=== PATIENT | male | born 1940 | race Caucasian/White ===

== ENCOUNTER 2016-06-22 10:42 | Inpatient (IN) | payer MEDICARE, OTHER ==
[~2016-06-22] VITALS: Ht 177.8 cm; Wt 90.9 kg
[2016-06-22 11:25] LABS: BASOPHILS 0.7 % (0.0-2.0); EOSINOPHILS 1.4 % (0-7); HEMATOCRIT 43.4 % (42.0-54.0); HEMOGLOBIN 13.6 g/dL (13.5-17.5); IMMATURE GRANULOCYTES 0.2 % (0-5); LYMPHOCYTES 10.5 % (15-50); MCH 30.6 pg (26.0-34.0); MCHC 31.3 g/dL (31.0-37.0); MCV 97.7 fL (80.0-100.0); MEAN PLATELET VOLUME 11.6 fL (7.4-10.4); MONOCYTES 13.8 % (2-11); NEUTROPHILS 73.4 % (40-80); PLATELET COUNT 134 10x3/uL (130-400); RBC 4.44 10x6/uL (4.20-6.10); RDW 13.3 % (11.5-14.5); WBC 5.6 10x3/uL (4.8-10.8)
[2016-06-22 11:49] LABS: ALBUMIN 3.4 g/dL (3.4-5.0); ANION GAP 13.6 mmol/L (8-16); BILIRUBIN - TOTAL 0.38 mg/dL (0.2-1.3); C-REACTIVE PROTEIN 9.8 mg/dL (0.0-0.9); CALCIUM 9.4 mg/dL (8.5-10.1); CARBON DIOXIDE 30.4 mmol/L (21.0-32.0); CREATININE - SERUM 1.8 mg/dL (0.6-1.3); PROTEIN - SERUM 7.5 g/dL (6.4-8.2)
[2016-06-22 12:25] VITALS: BP 137/66
[2016-06-22] MEDS ORDERED: NORVASC10 MG PO (14:31)
[2016-06-22] MEDS ORDERED: PROSCAR5 MG PO (14:32)
[2016-06-22] MEDS ORDERED: FLOMAX0.4 MG PO (14:32)
[2016-06-22] MEDS ORDERED: BUPROPION HCL150 M1 PO (14:33)
[2016-06-22] MEDS ORDERED: DEPAKOTE ER500 MG PO (14:33)
[2016-06-22] MEDS ORDERED: CRESTOR20 MG PO (14:34)
[2016-06-22] MEDS ORDERED: NAMENDA XR28 MG PO (14:34)
[2016-06-22] MEDS ORDERED: TOPROL XL25 MG PO (14:34)
[2016-06-22] MEDS ORDERED: HYDROCODONE-APA1 TAB PO (14:35)
[2016-06-22 14:42] VITALS: BP 137/66; Ht 177.8 cm; Wt 90.9 kg
[2016-06-22 15:09] VITALS: BP 149/83
[2016-06-22 21:00] VITALS: BP 155/74
[2016-06-23 01:30] VITALS: BP 173/79
[2016-06-23 05:00] VITALS: BP 147/68
[2016-06-23 05:47] LABS: BASOPHILS 0.2 % (0.0-2.0); EOSINOPHILS 2.4 % (0-7); HEMATOCRIT 37.9 % (42.0-54.0); IMMATURE GRANULOCYTES 0.2 % (0-5); LYMPHOCYTES 13.7 % (15-50); MCH 30.6 pg (26.0-34.0); MCHC 31.7 g/dL (31.0-37.0); MCV 96.7 fL (80.0-100.0); MEAN PLATELET VOLUME 11.8 fL (7.4-10.4); NEUTROPHILS 72.5 % (40-80); PLATELET COUNT 118 10x3/uL (130-400); RBC 3.92 10x6/uL (4.20-6.10); RDW 13.3 % (11.5-14.5)
[2016-06-23 06:36] LABS: ALBUMIN 2.6 g/dL (3.4-5.0); ANION GAP 11.4 mmol/L (8-16); BILIRUBIN - TOTAL 0.3 mg/dL (0.2-1.3); CALCIUM 8.3 mg/dL (8.5-10.1); CREATININE - SERUM 1.5 mg/dL (0.6-1.3); POTASSIUM - SERUM 3.4 mmol/L (3.5-5.1); PROTEIN - SERUM 6.1 g/dL (6.4-8.2)
[2016-06-23 07:57] VITALS: BP 141/78
[2016-06-23 10:56] LABS: APPEARANCE CLEAR (CLEAR); COLOR YELLOW (YELLOW); GLUCOSE NEGATIVE (NEGATIVE); NITRITE NEGATIVE (NEGATIVE); PROTEIN NEGATIVE (NEGATIVE)
[2016-06-23 10:57] LABS: BACTERIA FEW /hpf (NONE SEEN); BILIRUBIN NEGATIVE (NEGATIVE); EPITHELIAL CELLS 0-5 /hpf (0-5); KETONE MODERATE mg/dL (NEGATIVE); LEUKOCYTE ESTERASE TRACE (NEGATIVE); MUCUS <1+ /lpf (NONE SEEN); RED CELLS - URINE OCC /hpf (0-5); WHITE CELLS - URINE 0-5 /hpf (0-5)
[2016-06-23 12:35] VITALS: BP 144/78
[2016-06-23 15:31] VITALS: BP 145/75
[2016-06-23 21:25] VITALS: BP 136/67
[2016-06-24 01:14] VITALS: BP 149/69
[2016-06-24 04:59] LABS: BASOPHILS 0.5 % (0.0-2.0); EOSINOPHILS 1.4 % (0-7); HEMATOCRIT 38.1 % (42.0-54.0); HEMOGLOBIN 12.1 g/dL (13.5-17.5); IMMATURE GRANULOCYTES 0.2 % (0-5); LYMPHOCYTES 14.5 % (15-50); MCH 30.7 pg (26.0-34.0); MCHC 31.8 g/dL (31.0-37.0); MCV 96.7 fL (80.0-100.0); MEAN PLATELET VOLUME 11.3 fL (7.4-10.4); MONOCYTES 13.3 % (2-11); NEUTROPHILS 70.1 % (40-80); PLATELET COUNT 118 10x3/uL (130-400); RBC 3.94 10x6/uL (4.20-6.10); RDW 13.2 % (11.5-14.5); WBC 4.2 10x3/uL (4.8-10.8)
[2016-06-24 05:15] LABS: ALBUMIN 2.6 g/dL (3.4-5.0); ANION GAP 10.9 mmol/L (8-16); BILIRUBIN - TOTAL 0.3 mg/dL (0.2-1.3); CALCIUM 8.5 mg/dL (8.5-10.1); CARBON DIOXIDE 29.3 mmol/L (21.0-32.0); CREATININE - SERUM 1.6 mg/dL (0.6-1.3); POTASSIUM - SERUM 3.2 mmol/L (3.5-5.1); PROTEIN - SERUM 6.1 g/dL (6.4-8.2)
[2016-06-24 06:50] VITALS: BP 132/68
[2016-06-24 08:20] VITALS: BP 155/77
[2016-06-24 12:19] VITALS: BP 134/64
[2016-06-24 16:55] VITALS: BP 124/66
[2016-06-24 21:03] VITALS: BP 136/68
[2016-06-25 00:59] VITALS: BP 145/69
[2016-06-25 04:00] VITALS: BP 133/75
[2016-06-25 06:11] LABS: BASOPHILS 0.2 % (0.0-2.0); EOSINOPHILS 3.3 % (0-7); HEMATOCRIT 37.9 % (42.0-54.0); HEMOGLOBIN 11.8 g/dL (13.5-17.5); IMMATURE GRANULOCYTES 0.9 % (0-5); LYMPHOCYTES 14.1 % (15-50); MCH 30.3 pg (26.0-34.0); MCHC 31.1 g/dL (31.0-37.0); MCV 97.4 fL (80.0-100.0); MEAN PLATELET VOLUME 11.7 fL (7.4-10.4); MONOCYTES 10.7 % (2-11); NEUTROPHILS 70.8 % (40-80); PLATELET COUNT 115 10x3/uL (130-400); RBC 3.89 10x6/uL (4.20-6.10); RDW 13.4 % (11.5-14.5); WBC 4.5 10x3/uL (4.8-10.8)
[2016-06-25 06:40] LABS: ALBUMIN 2.5 g/dL (3.4-5.0); ANION GAP 11.8 mmol/L (8-16); BILIRUBIN - TOTAL 0.3 mg/dL (0.2-1.3); CALCIUM 8.5 mg/dL (8.5-10.1); CARBON DIOXIDE 27.7 mmol/L (21.0-32.0); CREATININE - SERUM 1.5 mg/dL (0.6-1.3); POTASSIUM - SERUM 3.5 mmol/L (3.5-5.1); PROTEIN - SERUM 6.1 g/dL (6.4-8.2)
[2016-06-25 07:59] VITALS: BP 153/71
[2016-06-25] MEDS ORDERED: IPRAT-ALBUT 0.5-3 ML UPD (11:30)
[2016-06-25 12:08] VITALS: BP 160/71
--- NOTE | 2016-07-28 09:33 | HP ---
PATIENT: ERIKA MEJIA MEDICAL RECORD: [id number] ACCOUNT: [id number] LOCATION:D.MS [id number] : 41 ADMISSION DATE: 06/22/16 HISTORY AND PHYSICAL EXAMINATION CHIEF COMPLAINT: Falls. HISTORY OF PRESENT ILLNESS: A 76-year-old white male patient of mine who lives at [facility] with his presents after falling last night. The patient reports he was trying to go to the bathroom, fell in the bathroom, hit his head and hit his back. He has excoriations and swelling around the top right side of his face, large bruising and hematoma to the right flank area. The patient reports that he has been dizzy lately and he does have some mild dementia and a history of chronic back pain, on narcotics. REVIEW OF SYSTEMS: CONSTITUTIONAL: Positive for fatigue, no fever or chills. CARDIOVASCULAR: No chest pain. RESPIRATORY: No cough or wheeze. GASTROINTESTINAL: No nausea, vomiting, abdominal pain. GENITOURINARY: No dysuria. MUSCULOSKELETAL: Positive for chronic back pain. SKIN: Positive for excoriation to face. NEUROLOGIC: See HPI. PAST MEDICAL HISTORY: 1. Congestive heart failure. 2. Hyperlipidemia. 3. Hypertension. 4. History of pneumonia. 5. History of kidney stones. 6. Osteoarthritis. 7. Mild dementia. 8. History of stroke. 9. Chronic kidney disease. 10. Benign prostatic hypertrophy. 11. Depression. PAST SURGICAL HISTORY: Vasectomy, CABG and back surgery times 2. FAMILY HISTORY: Father with coronary artery disease. SOCIAL HISTORY: The patient is with 2 children. 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 Nonsmoker, nondrinker. ALLERGIES: No known drug allergies. MEDICATIONS: [place] 10/325 one b.i.d. to t.i.d. p.r.n., Namenda XR 28 mg 1 a day, Crestor 20 mg at night, vitamin D3 of 1000 units 2 tabs daily, Toprol-XL 25 mg a day, Depakote 500 mg 2 tabs at night, Wellbutrin SR 150 mg b.i.d., amlodipine 5 mg b.i.d., Flomax 0.4 mg daily, MiraLax as needed, finasteride 5 mg daily, aspirin 325 mg a day. PHYSICAL EXAMINATION: VITAL SIGNS: Temperature 98.4, blood pressure 118/76, pulse 99, respirations HISTORY AND PHYSICAL [id number] ERIKA MEJIA 18, O2 sat 96% on room air. GENERAL: The patient in no acute distress. HEENT: Swollen right lower eyelid. RESPIRATORY: Lungs are clear to auscultation bilaterally. CARDIOVASCULAR: Regular rate and rhythm, 1+ pedal edema. GASTROINTESTINAL: Soft, nontender to palpation. Bowel sounds positive. MUSCULOSKELETAL: Shuffling gait, tender to palpation around the right flank area. SKIN: Abrasions at the right side of face and bruising/hematoma in the right flank. NEUROLOGIC: Awake, alert, oriented to person and place only. ASSESSMENT: 1. Fall. 2. Dizziness. 3. Closed head injury. 4. Flank pain. 5. Hypertension. 6. Opioid dependence. 7. Chronic kidney disease stage III. 8. Visual hallucinations. 9. Brief confusion. PLAN: We will admit the patient to the hospital. CT head, CT abdomen and pelvis with contrast to rule out kidney injury or other internal organ damage due to falls and dizziness. The patient likely would benefit from inpatient rehabilitation. Also due to recent hallucinations, possible cam-psych admit. Other orders as written on chart. TRANSINT:[id number] Voice Confirmation ID: [id number] DOCUMENT ID: [id number] IVANNA LOPEZ MD at 0933 CC: [id number] DICTATION DATE: 06/22/16 140 AIRLINE ATTENDANT: 06/22/16 1601 DIS IN 06/25/16 [facility] [address] [place] [address]
--- NOTE | 2016-09-01 15:50 | DS ---
PATIENT:ERIKA MEJIA :42 MEDICAL RECORD: [id number] DISCHARGE SUMMARY ADMISSION DATE: 06/22/16 DISCHARGE DATE: 06/25/16 DATE OF ADMISSION: 06/22/2016 DATE OF DISCHARGE: 06/25/2016 ADMITTING DIAGNOSES: 1. Fall. 2. Dizziness. 3. Closed head injury. 4. Flank pain. 5. Hypertension. 6. Opioid dependence. 7. Chronic kidney disease, stage III. 8. Visual hallucinations. 9. Brief confusion. HOSPITAL COURSE: This is a 76-year-old white male patient of Dr. Medrano, admitted with diagnoses as outlined above. Details are well-outlined in the history of the present illness, H&P. All events, lab procedures, diagnostic testing are well documented in the records. The patient was admitted and workup included CT head, CT abdomen and pelvis to rule out any kidney injury or other internal organ damage due to falls and dizziness. Chest x-ray showed minimal interstitial disease presents with extensive postoperative changes. Cervical spine CT, no acute osseous abnormality present in the cervical spine. There were extensive degenerative changes present throughout the cervical spine contributing to multilevel spinal canal stenosis and neural foraminal narrowing, osteoporosis, atherosclerosis in the carotid bulbs bilaterally. CT of the abdomen and pelvis showing no evidence of acute traumatic injury in the abdomen or pelvis. There was noted to be extensive surgical intervention in the visualized thoracic spine and in the upper lumbar spine. No acute osseous abnormality. It also showed punctate nonobstructive calculus in the superior pole of the left kidney, cholelithiasis, mild fecal impaction. CT of the head, no acute intracranial abnormality. It did show bifrontal encephalomalacia, most likely due to previous trauma or infarctions and mild diffuse sinusitis. Finger x-ray acute nondisplaced fracture involving the base of the proximal phalanx of the right fifth finger. Please refer to report. X-ray of the knee, no acute osseous abnormality in the right knee. There was some mild osteoarthritic narrowing of the patellofemoral joint. CONSULTANTS: Dr. Rocha with ortho, his recommendations were followed. No intervention was required for the asymptomatic right fifth metacarpal fracture. Overall, the patient improved. On 06/25/2016, he was breathing okay [facility] HE was afebrile, pulse 96, respirations 18, blood pressure 153/71 and O2 sat 95% on room air. DISCHARGE SUMMARY REPORT [id number] ERIKA MEJIA LABORATORY DATA: Sodium 147, potassium 3.5, chloride 111, CO2 of 27.7, BUN 21, serum creatinine 1.5, and glucose 91. White count 4.5, hemoglobin 11.8, and platelets were 115. T-bili 0.3, AST 15, ALT 14, alkaline phosphatase 80, albumin 2.5, and total protein 6.1. Blood culture no growth to date. He was dismissed to rehab. Instructions were given to encourage p.o. fluid intake there. Dr. Park will follow him there. Greater than 30 minutes was spent on this discharge. DISCHARGE DIAGNOSES: 1. Hallucinations. 2. Acute delirium. 3. Frequent fall. 4. Acute kidney injury. 5. Closed head injury with concussion. 6. Hypernatremia. 7. Finger fracture, right. 8. Congestive heart failure. 9. Hyperlipidemia. 10. Essential hypertension. 11. Osteoarthritis. 12. Depression. 13. Tachycardia. 14. Chronic kidney disease, stage III. TRANSINT:[id number] Voice Confirmation ID: [id number] DOCUMENT ID: [id number] Dictated By: VALENTIN MARSHALL RN I have interviewed/examined the above patient and agree with these documented findings. RADHA ARREOLA DO at 1012 at 1550 CC: [id number] DICTATION DATE: 08/31/16 1630 RIBBON HANKING MACHINE OPERATOR: 09/01/16 1137 DIS IN 06/25/16 [id number] [place] [address]
== END 2016-06-25 14:20 | DRG 89 ==
LOC: D.MS 10:42
PROVIDERS: Family Medicine; ADMIT Family Medicine
DX: S06.0X9A Concussion with loss of consciousness of unspecified duration, initial encounter (principal); S36.32XA Contusion of stomach, initial encounter; N17.9 Acute kidney failure, unspecified; E87.0 Hyperosmolality and hypernatremia; I13.0 Hypertensive heart and chronic kidney disease with heart failure and stage 1 through stage 4 chronic kidney disease, or unspecified chronic kidney disease; F05 Delirium due to known physiological condition; S62.606A Fracture of unspecified phalanx of right little finger, initial encounter for closed fracture; W18.30XA Fall on same level, unspecified, initial encounter; Y92.002 Bathroom of unspecified non-institutional (private) residence as the place of occurrence of the external cause; S00.81XA Abrasion of other part of head, initial encounter; M19.90 Unspecified osteoarthritis, unspecified site; F32.9 Major depressive disorder, single episode, unspecified; F03.90 Unspecified dementia, unspecified severity, without behavioral disturbance, psychotic disturbance, mood disturbance, and anxiety; M54.9 Dorsalgia, unspecified; R41.0 Disorientation, unspecified; G89.29 Other chronic pain; E78.5 Hyperlipidemia, unspecified; N18.3 Chronic kidney disease, stage 3 (moderate); I50.9 Heart failure, unspecified; N40.0 Benign prostatic hyperplasia without lower urinary tract symptoms; I25.10 Atherosclerotic heart disease of native coronary artery without angina pectoris; Z91.81 History of falling

== ENCOUNTER → 2016-08-19 12:00 | Outpatient (CLI) | payer MEDICARE, OTHER ==
[2016-06-22 14:42] VITALS: BMI 28.7
[~2016-08-19 12:00] MED LIST: BUPROPION HCL150 M1 PO; CRESTOR20 MG PO; DEPAKOTE ER500 MG PO; FLOMAX0.4 MG PO; HYDROCODONE-APA1 TAB PO; IPRAT-ALBUT 0.5-3 ML UPD; NAMENDA XR28 MG PO; NORVASC10 MG PO; PROSCAR5 MG PO; TOPROL XL25 MG PO
== END | disposition home or self-care (01) ==
LOC: D.RAD 12:00
DX: R13.13 Dysphagia, pharyngeal phase (principal)

== ENCOUNTER → 2016-09-14 09:51 | Outpatient (CLI) | payer MEDICARE, OTHER ==
[2016-06-22 14:42] VITALS: BMI 28.7
[2016-09-14 10:45] LABS: CHOL - HDL RATIO 2.6 ratio (2.3-4.9); LDL-HDL RATIO 1.4 ratio (1.5-3.5)
== END | disposition home or self-care (01) ==
LOC: D.LABREF 09:51
PROVIDERS: Family Medicine
DX: I25.10 Atherosclerotic heart disease of native coronary artery without angina pectoris (principal)

== ENCOUNTER → 2016-12-14 12:46 | Outpatient (CLI) | payer MEDICARE, OTHER ==
[2016-06-22 14:42] VITALS: BMI 28.7
[2016-12-14 14:55] LABS: ANION GAP 12.9 mmol/L (8-16); CARBON DIOXIDE 28.1 mmol/L (21.0-32.0); CREATININE - SERUM 1.4 mg/dL (0.6-1.3)
== END | disposition home or self-care (01) ==
LOC: D.LABREF 12:46
PROVIDERS: Family Medicine
DX: I50.9 Heart failure, unspecified (principal); I10 Essential (primary) hypertension; N40.0 Benign prostatic hyperplasia without lower urinary tract symptoms

== ENCOUNTER 2017-04-29 11:40 | Emergency (ER) | payer MEDICARE, OTHER ==
[2016-06-22 14:42] VITALS: BMI 28.7
== END 2017-04-29 16:55 | disposition home or self-care (01) ==
LOC: D.ER 11:40
DX: S39.012A Strain of muscle, fascia and tendon of lower back, initial encounter (principal); W19.XXXA Unspecified fall, initial encounter; Y93.89 Activity, other specified; Y92.129 Unspecified place in nursing home as the place of occurrence of the external cause

== ENCOUNTER 2019-10-01 09:02 | Inpatient (IN) | payer MEDICARE, BC ==
[~2019-10-01] VITALS: Ht 177.8 cm; Wt 88.0 kg
[2019-10-01] MEDS ORDERED: GABAPENTIN300 MG PO (09:10)
[2019-10-01] MEDS ORDERED: VOLTAREN100 GM (09:11)
[2019-10-01] MEDS ORDERED: DULCOLAX5 MG PO (09:11)
[2019-10-01] MEDS ORDERED: PROAIR HFA8.5 G1 INH (09:12)
[2019-10-01] MEDS ORDERED: TESSALON PERLE100 MG PO (09:12)
[2019-10-01] MEDS ORDERED: MIRALAX17 GM PO (09:12)
[2019-10-01] MEDS ORDERED: ASPIRIN325 MG PO (09:13)
[2019-10-01] MEDS ORDERED: TRINTELLIX5 MG PO (09:14)
[2019-10-02 14:05] VITALS: Ht 177.8 cm; Wt 88.0 kg
[2019-10-11] MEDS ORDERED: HALDOL5 MG/ML IM (11:42)
[2019-10-11] MEDS ORDERED: TOPROL XL50 MG PO (11:42)
[2019-10-11 12:00] VITALS: BP 144/77
== END 2019-10-11 15:30 | disposition short-term general hospital (02) | DRG 871 ==
LOC: D.ER 09:02 → D.MS 12:20
PROVIDERS: ADMIT Emergency Medicine; ATTEND Emergency Medicine
DX: A41.9 Sepsis, unspecified organism (principal); G93.41 Metabolic encephalopathy; I21.4 Non-ST elevation (NSTEMI) myocardial infarction; N39.0 Urinary tract infection, site not specified; I13.0 Hypertensive heart and chronic kidney disease with heart failure and stage 1 through stage 4 chronic kidney disease, or unspecified chronic kidney disease; I50.9 Heart failure, unspecified; N18.3 Chronic kidney disease, stage 3 (moderate); E78.5 Hyperlipidemia, unspecified; E87.6 Hypokalemia; F32.9 Major depressive disorder, single episode, unspecified; I25.10 Atherosclerotic heart disease of native coronary artery without angina pectoris; N40.0 Benign prostatic hyperplasia without lower urinary tract symptoms; F01.50 Vascular dementia, unspecified severity, without behavioral disturbance, psychotic disturbance, mood disturbance, and anxiety; G93.89 Other specified disorders of brain

== ENCOUNTER 2019-10-11 14:28 | Inpatient (IN) | payer MEDICARE, BC ==
[~2019-10-11] VITALS: Ht 177.8 cm; Wt 82.1 kg
[~2019-10-11 14:28] MED LIST changes: +ASPIRIN325 MG PO; +DULCOLAX5 MG PO; +GABAPENTIN300 MG PO; +HALDOL5 MG/ML IM; +MIRALAX17 GM PO; +PROAIR HFA8.5 G1 INH; +TESSALON PERLE100 MG PO; +TOPROL XL50 MG PO; +TRINTELLIX5 MG PO; +VOLTAREN100 GM
[2019-10-11 16:04] VITALS: BP 140/80; BMI 25.3
--- NOTE | 2019-10-11 17:04 | NUR ---
The patient is admitted from Med Surg. He is brought by two staff in a bed, staff transferred the patient from the bed to the [facility] to weigh him on the scale. He is calm and did not show any aggression. He has bruises to his right wrist area. He has scars from bypass surgery in early 1999'. Scar from a back surgery years ago. He has his own teeth. His left side of his face looks like it is lower than the right, but he denies a stroke ever. Spoke to the patient's "Zeinab" and she says he has never had a stroke, but at one time had a small TIA. She also states the patient is a full code. He has his own teeth and he is not wearing glasses or a hearing aid. He answers most questions at this time appropriately. Will monitor his mood and behaviors.
--- NOTE | 2019-10-11 18:31 | NUR ---
The patient has a bandage to his left arm d/t skin tears.
[2019-10-11 18:50] LABS: CHOL - HDL RATIO 2.8 ratio (2.3-4.9); LDL-HDL RATIO 1.3 ratio (1.5-3.5); THYROID STIMULATING HORMONE 1.68 uIU/mL (0.36-3.74)
[2019-10-11 20:10] VITALS: BP 135/75
--- NOTE | 2019-10-11 23:09 | NUR ---
B.) PT IS ALERT AND ORIENTED TO SELF. HE IS RECEIVED IN THE DAYROOM IN A WHEELCHAIR. HE IS SELF ISOLATING AND WITHDRAWN. HE DEMANDS TO HAVE A BLANKET OVER HIS FACE. I.) REDIRECT OFTEN. R.) EASY TO REDIRECT. P.) WILL CONTINUE TO MONITOR.
--- NOTE | 2019-10-12 06:16 | NUR ---
DRESSING CHANGE APPLIED TO SKIN TEARS ON LEFT ARM. NON ADHERENT DRESSING APPLIED AND KURLEX WRAPPED. FREE FROM S&S OF INFECTION.
--- NOTE | 2019-10-12 11:03 | NUR ---
The patient awakened and he didn't want to get up this am. He fought with the staff a little this am, but once he was up he did not fight anymore. He is watchful. He didn't drink any fluids or eat breakfast. His called to check on him. He did sleep well last night. He is very confused and has poor insight into his situation. Provide prescribed meds. redirect as needed to appropriate behavior. The patient is in a w/c and he needs assistance with two staff. He is incont. of bowel and bladder. Continue POC.
[2019-10-12 11:35] VITALS: BP 195/85
[2019-10-12 14:59] LABS: BASOPHILS 0.5 % (0-2); EOSINOPHILS 0.2 % (0-7); HEMATOCRIT 43.7 % (42.0-54.0); HEMOGLOBIN 14.3 g/dL (13.5-17.5); IMMATURE GRANULOCYTES 0.2 % (0-5); LYMPHOCYTES 7.4 % (15-50); MCHC 32.7 g/dL (31.0-37.0); MCV 91.6 fL (80.0-100.0); NEUTROPHILS 79.7 % (40-80); PLATELET COUNT 181 10x3/uL (130-400); RBC 4.77 10x6/uL (4.20-6.10); RDW 14.4 % (11.5-14.5); WBC 8.5 10x3/uL (4.8-10.8)
[2019-10-12 17:29] VITALS: BP 195/85
[2019-10-12 20:21] VITALS: BP 160/84
--- NOTE | 2019-10-12 23:09 | NUR ---
B.) PT IS ALERT AND ORIENTED TO SELF ONLY. HE IS SELF ISOLATING AND WITHDRAWN WITH A FLAT AFFECT. HE HAS A DELAYED REACTION WHEN SPOKEN TO. HE IS AGGRESSIVE WITHOUT PREVOCATION. I.) PROVIDED PM MEDICATIONS PRESCRIBED. REDIRECT OFTEN. R.) PT CHEEKED MEDS AND REFUSED TO TAKE THEM. DIFFICULT TO REDIRECT. P.) WILL CONTINUE TO MONITOR.
--- NOTE | 2019-10-13 07:20 | NUR ---
The patient is awake, he is quiet and watchful. He has poor insight into his situation. He doesn't like to be touched, shift leader he did hit at them, but he has not shown aggression at this time. He answers most questions about himself, but he does not know place or time. Provide prescribed meds. He has not been compliant with meds. He is in a w/c. He needs assist x2 for transfers. Continue POC.
--- NOTE | 2019-10-13 09:39 | NUR ---
The patient refuses his vital signs, refuses his meds, and refuses to eat. The patient's called to check on him. Let her know he is refusing everything today, but will be discussing him in rounds today.
--- NOTE | 2019-10-13 13:04 | PSY ---
PATIENT NAME:ERIKA MEJIA MEDICAL RECORD: [id number] : 42 LOCATION:JESUS [id number] ADMISSION DATE: 10/11/19 ACCOUNT: [id number] PSYCHIATRIC EVALUATION DATE OF EVALUATION: 10/12/19 IDENTIFYING DATA: The patient is 79 years old and he is admitted to the hospital on a voluntary basis. CHIEF COMPLAINT: Confusion and agitation. HISTORY OF PRESENT ILLNESS: The patient presented to the Emergency Room with some confusion and aggressive behavior. The family was concerned that he had a urinary tract infection and that was causing the change. The patient denied usual symptoms associated with a urinary tract infection, but he was subsequently admitted to the medical floor and congestive heart failure and with a urinary tract infection. It was felt that the mental status changes were secondary to the urinary tract infection. Unfortunately, his behaviors did not improve there. He was subsequently transferred to the behavioral unit for ongoing treatment. PAST MEDICAL HISTORY: Significant for hypertension, coronary artery disease, coronary artery bypass grafting, congestive heart failure, urinary tract infection. PAST PSYCHIATRIC HISTORY: None. He is, however, taking an antidepressant and he had recently been on a dose of Namenda. FAMILY HISTORY: Unknown. SOCIAL HISTORY: The patient is and has adult children. He has limited insight about his situation and is not giving me reliable history, but he denies a history of drug or alcohol abuse. MENTAL STATUS EXAMINATION: The patient is awake, alert and oriented to person only. His mood is flat. His affect is constricted. Thought processes are circumstantial. Memory, concentration, and abstraction abilities are severely impaired and he denies that he would seek to harm himself or others as well as active psychotic symptoms. ASSESSMENT: AXIS I: Major neurocognitive disorder of the Alzheimer's type with behavioral disturbances. AXIS II: None. AXIS III: Hypertension, chronic obstructive pulmonary disease, congestive heart failure, urinary tract infection. AXIS IV: Moderate. AXIS V: Global assessment of functioning is 30. PLAN: At this time, the patient will be admitted to the hospital and evaluated from both a medical, psychological, and social standpoint. He will be treated with both mood stabilizing and memory enhancing medications. His long-term prognosis is guarded. TRANSINT:[id number] Voice Confirmation ID: [id number] DOCUMENT ID: [id number] TEO KENDRICK MD at 1304 CC: [id number] DICTATION DATE: 10/12/19 1311 BENZENE OPERATOR: 10/12/19 1353 ADM IN [facility] [address] [id number]
--- NOTE | 2019-10-13 14:52 | PN ---
PATIENT:ERIKA MEJIA MEDICAL RECORD: [id number] LOCATION:JESUS Francisco ADMISSION DATE: 10/11/19 PROGRESS NOTE DATE OF SERVICE: 10/13/2019 SUBJECTIVE: The patient's case was discussed with staff. He has no new complaint. OBJECTIVE: The patient is severely impaired. He is only oriented to person and is very difficult to get to answer questions. He is not eating adequately. He is in fact not eating at all and his oral intake is essentially zero. He is also refusing to take medications. His appearance seems to be one of an end-stage dementia. TRANSINT:[id number] Voice Confirmation ID: [id number] DOCUMENT ID: [id number] TEO KENDRICK MD at 1452 CC: [id number] DICTATION DATE: 10/13/19 1335 PIANO REFINISHER: 10/13/19 1354 ADM IN [facility] [address] [place] [address]
--- NOTE | 2019-10-13 17:30 | NUR ---
Spoke to the patient's spouse and let her know how her did. He slept last night, but still noncompliant with meds and not eating. Noemi from [facility] called and asked the same questions and she said the patient's spouse called and wanted to get a confirmation. Let Noemi the same thing as I explained to the spouse whic is he is sleeping, not eating and not taking his medications. Noemi asked "Will you ever give him a shot?" Explained to her that we typically only give injections when we see anxiety and or aggression." Noemi said "Oh, ok" She also asked if Dr. Park made rounds on him yet. Explained to her that PCP's do not round here that the medical Dr. is Dr. Cristobal and the psychiatrist is Dr. Chavez." No other questions at this time.
--- NOTE | 2019-10-13 19:41 | NUR ---
RECEIVED IN DAYROOM. SITTING IN A CHAIR AT THE TABLE. CALM AND COOPERATIVE WITH CARE AND ASSESSMENT. NO SIGNS OF AGGRESSION. REDIRECT AND REORIENT NEEDED. CONTINUES TO SIT CALMLY IN DAYROOM. CONTINUE PLAN OF CARE.
[2019-10-13 20:24] VITALS: BP 146/78
[2019-10-14 07:18] LABS: ANION GAP 18.7 mmol/L (8-16); BILIRUBIN - TOTAL 0.56 mg/dL (0.2-1.3); CALCIUM 9.5 mg/dL (8.5-10.1); CARBON DIOXIDE 22.4 mmol/L (21.0-32.0); CREATININE - SERUM 2.3 mg/dL (0.6-1.3); POTASSIUM - SERUM 4.1 mmol/L (3.5-5.1); PROTEIN - SERUM 6.6 g/dL (6.4-8.2)
[2019-10-14 09:07] VITALS: BP 163/80
[2019-10-14 09:11] VITALS: BMI 25.9
--- NOTE | 2019-10-14 12:00 | NUR ---
RECEIVED IN HALLWAY OUTSIDE OF NURSES STATION. CALM AND COOPERATIVE WITH CARE AND ASSESSMENT. VERY FLAT AFFECT. NO AGGRESSION. REDIRECT AND REORIENT NEEDED. EATING LUNCH AT THIS TIME. CONTINUE PLAN OF CARE.
[2019-10-14 19:45] VITALS: BP 165/81
--- NOTE | 2019-10-14 20:13 | NUR ---
RECEIVED IN DAYROOM. SITING IN CALMLY IN A RECLINER WITH EYES CLOSED. NOT SOCIAL. NO SIGNS OF AGGRESSION. CALM AND COOPERATIVE WITH CARE AND ASSESSMENT.REDIRECT AND REORIENT NEEDED. CONTINUES TO SIT CALMLY IN DAYROOM. CONTINUE PLAN OF CARE.
[2019-10-15 07:13] LABS: RAPID PLASMA REAGIN Non Reactive (Non Reactive)
[2019-10-15 09:53] VITALS: BP 106/45
--- NOTE | 2019-10-15 12:00 | NUR ---
RECEIVED IN HALLWAY OUTSIDE OF NURSES STATION. CALM AND COOPERATIVE WITH CARE AND ASSESSMENT. VERY FLAT AFFECT. DOES NOT RESPOND WHEN SPOKEN TO. REDIRECT AND REORIENT NEEDED. EATING LUNCH AT THIS TIME. CONTINUE PLAN OF CARE.
--- NOTE | 2019-10-15 13:53 | PN ---
PATIENT:ERIKA MEJIA MEDICAL RECORD: [id number] LOCATION:JESUS Adeel112 ADMISSION DATE: 10/11/19 PROGRESS NOTE DATE OF SERVICE: 10/14/2019 SUBJECTIVE: The patient's case was discussed with staff. He has no new complaint. OBJECTIVE: The patient is nonverbal today. He is not interacting with me at all. He is also not eating and noncompliant with his medications. ASSESSMENT: Dementia. PLAN: The patient looks like he is in an end-stage dementia. Unless there is a history of a serious mood disorder, I think there is probably little that can be done for him. Even if there is a history of some serious mood disorder in the past that still would not fit very well with his clinical presentation at this point. He looks as though he is in the end stages of a dementing illness. I am going to review lab and imaging again and if there is no improvement, I think it would be reasonable to refer him to hospice. TRANSINT:[id number] Voice Confirmation ID: [id number] DOCUMENT ID: [id number] TEO KENDRICK MD at 1353 CC: [id number] DICTATION DATE: 10/14/19 1510 PCA: 10/15/19 0151 ADM IN [facility] [address] [place] [address]
--- NOTE | 2019-10-15 15:30 | NUR ---
SW MET WITH PT'S AND DISCUSSED PT'S PROGRESS. SW ASKED IF SHE WOULD LIKE TO TRY TO FEED HIM ICE CREAM AND SHE STATED YES. PT STATED HE WANTED CHOCOLATE AND HE ATE TWO SMALL CONTAINERS DURING THE VISIT. SW DISCUSSED PT'S BEHAVIORS WITH AND POSSIBLE DISCHARGE PLANNING NEEDS. NED VERBALIZED UNDERSTANDING OF DISCUSSION.
[2019-10-15 17:15] LABS: BASOPHILS 0.1 % (0-2); EOSINOPHILS 0 % (0-7); HEMATOCRIT 45.3 % (42.0-54.0); HEMOGLOBIN 14.8 g/dL (13.5-17.5); IMMATURE GRANULOCYTES 0.3 % (0-5); LYMPHOCYTES 5.2 % (15-50); MCHC 32.7 g/dL (31.0-37.0); MCV 91.9 fL (80.0-100.0); MEAN PLATELET VOLUME 12.8 fL (7.4-10.4); MONOCYTES 8.5 % (2-11); NEUTROPHILS 85.9 % (40-80); PLATELET COUNT 189 10x3/uL (130-400); RBC 4.93 10x6/uL (4.20-6.10); RDW 14.9 % (11.5-14.5); WBC 10.6 10x3/uL (4.8-10.8)
[2019-10-15 17:42] LABS: ALBUMIN 3.4 g/dL (3.4-5.0); BILIRUBIN - TOTAL 0.53 mg/dL (0.2-1.3); CALCIUM 9.5 mg/dL (8.5-10.1); PROTEIN - SERUM 6.9 g/dL (6.4-8.2)
[2019-10-15 17:48] LABS: ANION GAP 12.6 mmol/L (8-16); CARBON DIOXIDE 29.4 mmol/L (21.0-32.0); CREATININE - SERUM 3.2 mg/dL (0.6-1.3)
[2019-10-15 19:49] VITALS: BP 177/80
--- NOTE | 2019-10-16 01:05 | NUR ---
B) patient is alert and responds to his name, calm and cooperative, does not speak, yells out at times with care. I) Administered scheduled medications as ordered, monitored for safety R) Medication compliant, resting quietly in bed, P) Continue plan of care.
--- NOTE | 2019-10-16 08:30 | NUR ---
PATIENT ATE THREE BITES OF SCRAMBLED EGGS AND CHOKED ON EGGS.
--- NOTE | 2019-10-16 10:00 | NUR ---
SPOKE TO PT'S ABOUT DISEASE PROGRESSION AND PT NOT SWALLOWING HIS FOOD THIS MORNING. ANISH INFORMED NED IF PT GETS MORE MEDICAL THAN PSCHICATRIC PT WILL BE MOVED UPSTAIRS. NED STATED SHE WANTED TO TALK TO THE MD ABOUT DISCHARGING HIM TO [facility]. ANISH EXPLAINED PT COULD BE DISCHARGED BUT WE COULDN'T DISCHARGE HIM TO [facility] ER. FAMILY WOULD THEN HAVE TO ARRANGE TRANSPORT OR PRIVATELY PAY FOR AMBULANCE. ANISH STATED SHE WOULD GIVE MD MESSAGE AND HAVE HIM CALL HER ABOUT DESIRED TREATMENT. NED VERBALIZED UNDERSTANDING OF DISCUSSION.
[2019-10-16 10:25] VITALS: BP 129/67
--- NOTE | 2019-10-16 10:36 | NUR ---
Nutrition Follow-up: Chart reviewed. Noted patient was seen by [facility]. SALES EFFECTIVENESS MANAGER states no overt s/s of aspiration noted on regular consistency or thin liquids. However, poor coordination noted. SALES EFFECTIVENESS MANAGER estimates "poor prognosis for functional matience of hydration and nutrition"..."alternate source of nutrition may need to be considered." Diet: Cardiac PO intake: ~1% of meals and 100% x 2 snacks only since admit (x 5 days now) Last BM: 10/13/19. WT: 176# (10/14/19); Admit WT: 176# (10/11/19) Meds noted: miralax. Labs noted: Na 148(H), BUN 51(H), Cr 3.2(H), GFR 20(L), Glu 172 (H) Consistently inadequate PO intake. Recommend PEG placement for nutrition support. If EN clinically indicated and/or desired by MD/family recommend feeds of: Osmolite 1.5 continuous goal of 45mL/hr + H20 @ 50mL/hr OR Bolus regimen of Osmolite 1.5 x [address] following.
--- NOTE | 2019-10-16 12:30 | NUR ---
LASIX 40 MG PO CRUSHED IN APPLESAUCE ATTEMPTED TO GIVE PATIENT AND HE SPIT IT OUT. TRIED AGAIN FEW MINUTES LATER AND PATIENT TOOK APPLESAUCE BUT POCKETS IT IN HIS MOUTH.
[2019-10-16 12:44] VITALS: Ht 177.8 cm; Wt 82.1 kg
--- NOTE | 2019-10-16 14:54 | NUR ---
RECEIVED IN HALLWAY OUTSIDE OF NURSES STATION. CALM AND COOPERATIVE WITH CARE AND ASSESSMENT. VERY FLAT AFFECT. NO COMBATIVE BEHAVIORS. REDIRECT AND REORIENT NEEDED. SITTING IN GROUP AT THIS TIME. CONTINUE PLAN OF CARE.
--- NOTE | 2019-10-16 15:00 | NUR ---
SPEECH THERAPY EVALUATED AND PATIENT FAILED IN ALL METHODS. ORDER PUT IN COMPUTER TO KEEP PATIENT NPO FOR NOW. ULTRA SOUND TO BE DONE TODAY.
[2019-10-16 20:49] VITALS: BP 140/72
--- NOTE | 2019-10-17 00:40 | NUR ---
B.) PT IS ALERT AND ORIENTED TO SELF ONLY. HE HAS POOR INSIGHT INTO HIS SITUATION. HE IS SELF ISOLATING AND FLAT AFFECT. NO AGGRESSIVE BEHAVIORS NOTED AT THIS TIME. I.) PROVIDED PM MEDICATIONS PRESCRIBED. REDIRECT OFTEN. R.) COMPLIANT WITH ALL MEDICATIONS. DIFFICULT TO REDIRECT. P.) WILL CONTINUE TO MONITOR.
[2019-10-17 07:07] LABS: HEMATOCRIT 42.8 % (42.0-54.0); HEMOGLOBIN 13.8 g/dL (13.5-17.5); LYMPHOCYTES 6.4 % (15-50); MCH 29.7 pg (26.0-34.0); MCHC 32.2 g/dL (31.0-37.0); MEAN PLATELET VOLUME 13.7 fL (7.4-10.4); NEUTROPHILS 83.4 % (40-80); RBC 4.65 10x6/uL (4.20-6.10); RDW 14.8 % (11.5-14.5); WBC 8.2 10x3/uL (4.8-10.8)
[2019-10-17 07:26] LABS: PLATELET COUNT 150 10x3/uL (130-400)
[2019-10-17 07:28] LABS: CALCIUM 9.2 mg/dL (8.5-10.1); CHLORIDE - SERUM 115 mmol/L (98-107); CREATININE - SERUM 2.9 mg/dL (0.6-1.3); PHOSPHOROUS 4.4 mg/dL (2.5-4.9); SODIUM 153 mmol/L (136-145); UREA NITROGEN 62 mg/dL (7-18); eGFR NON AFRICAN AMERICAN 22 mL/min (90-120)
[2019-10-17 07:31] LABS: CALC OSMOLALITY 322 mosm/kg (275-300); CKMB 4.8 U/L (0.0-3.6); CREATINE KINASE 1473 UL (21-232); GLUCOSE 114 mg/dL (74-106)
--- NOTE | 2019-10-17 08:30 | NUR ---
RECEIVED AT NURSES STATION SITTING IN WHEELCHAIR. CALM AND COOPERATIVE WITH SHIFT ASSESSMENT. NO AGGRESSIVE BEHAVIOR NOTED. WILL COBNTINUE TO MONITOR.
[2019-10-17 10:04] VITALS: BP 127/59
--- NOTE | 2019-10-17 12:00 | NUR ---
IV STARTED IN LEFT FOREARM X 2 ATTEMPTS WITH #22G ANGIOCATH PER ALEYDA SUH RN.
[2019-10-17] MEDS ORDERED: DONEPEZIL HCL5 MG PO (12:34)
[2019-10-17] MEDS ORDERED: ASPIRIN EC81 M1 PO (12:35)
[2019-10-17] MEDS ORDERED: FOLIC ACID1 MG PO (12:35)
--- NOTE | 2019-10-17 13:57 | NUR ---
HAD A MEETING WITH THE SPOUSE. [facility] MAJOR GENERAL WAS ALSO PRESENT. REVIEWED TX PLAN AND DISCUSSED SPOUSE'S CONVERSATION WITH DR. KENDRICK AND ANSWERED FUTHER QUESTIONS. DISCUSSED DIAGNOSIS AND SYMPTOMS. SPOUSE ASKED US TO SPEAK WITH HER SON. FOLLOWED SPOUSE TO MEET WITH SON AND DAUGHTER AND SPOUSES TO DISCUSS PT CONDITION AND TX PLAN ALONG WITH DISCHARGE PLANNING. AFTER DISCUSSION DAUGHTER CONTINUED TO DEMAND FOR PT TO BE SENT TO [facility] EMERGENCY ROOM. REVIEWED MEDICAL ORDERS PER DR. PARAR AND DR. KIMBALL. EXPLAINED THAT [facility] COULD TAKE CARE OF ALL OF THE PT'S NEEDS. FAMILY REFUSED AND CONTINUED TO DEMAND DISCHARGE IMMEDIATELY. STAFF WAS UNABLE TO CONTINUE ORDERS. IV WAS PLACED BUT NO MEDICATION WAS GIVEN DUE TO FAMILY REFUSAL TO ALLOW TREATMENT.
--- NOTE | 2019-10-17 15:30 | PN ---
PATIENT:ERIKA MEJIA MEDICAL RECORD: [id number] LOCATION:JESUS Denis112 ADMISSION DATE: 10/11/19 PROGRESS NOTE DATE OF SERVICE: 10/15/2019 SUBJECTIVE: The patient's case was discussed with staff. He has no new complaint. OBJECTIVE: The patient is only oriented to person. He is not eating and he is only intermittently taking medications. He has not been disruptive or combative. ASSESSMENT: Dementia. PLAN: This patient has an advanced dementia. 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 He is not adequately processing food and drink. Apparently, his cognition has been so bad that he has not driven a car since 2008. That is 11 years ago. He appears to have an advanced dementia and despite information that is contradicting this, I think his prognosis is very poor, especially if I cannot convince him to eat. His family wants him to be fed intravenously which is not a long-term solution to his issues. At this point, we will continue to work with him. I am going to give him a low dose of Namenda, but I think there is little that can do for him given his overall condition and how advanced the dementia is. I will also check some labs since he is not drinking adequately, I suspect he is becoming increasingly dehydrated. He did have an elevated BUN and creatinine 2 days ago and I suspect it is worse today. TRANSINT:[id number] Voice Confirmation ID: [id number] DOCUMENT ID: [id number] TEO KENDRICK MD at 1530 CC: [id number] DICTATION DATE: 10/15/19 1556 BOX HINGE AND LOCK ATTACHER: 10/16/19 0155 ADM IN [facility] [address] [place] [address]
--- NOTE | 2019-10-17 15:30 | PN ---
PATIENT:ERIKA MEJIA MEDICAL RECORD: [id number] LOCATION:[facility] ADMISSION DATE: 10/11/19 PROGRESS NOTE DATE OF SERVICE: 10/16/2019 SUBJECTIVE: The patient's case was discussed with staff. He has no new complaint. OBJECTIVE: The patient's condition is grave. The speech pathologist does not believe he can process liquids or solids safely and wants him to be n.p.o. That is of little consequence since he has not been taking medicine or eating or drinking adequately. His was able to get him to eat a couple of small containers of ice cream yesterday, but no one else has been able to get him to do so. I did discuss the situation with the who has unrealistic expectations for recovery. She was given the various options for him and she is going to consider them and discuss them with her children and let us know tomorrow. ASSESSMENT: Dementia. PLAN: Current level of therapies will be maintained and again this patient's prognosis is extremely poor given the overall circumstances. TRANSINT:[id number] Voice Confirmation ID: [id number] DOCUMENT ID: [id number] TEO KENDRICK MD at 1530 CC: [id number] DICTATION DATE: 10/16/19 1627 VIDEOTAPE OPERATOR: 10/16/19 9479 ADM IN [place] [id number] [place] [address]
--- NOTE | 2019-10-17 16:15 | NUR ---
SALINE LOCK IN LEFT FOREARM DISCONTINUED PER ALEYDA SUH RN. DUE TO TRANS-PORTATION VIA AMBULANCE TO [facility].
--- NOTE | 2019-10-18 12:53 | DS ---
PATIENT:ERIKA MEJIA :42 MEDICAL RECORD: [id number] DISCHARGE SUMMARY ADMISSION DATE: 10/11/19 DISCHARGE DATE: 10/17/19 IDENTIFYING DATA: The patient is 79 years old and he was admitted to the hospital on a voluntary basis. CHIEF COMPLAINT: Confusion and agitation. HISTORY OF PRESENT ILLNESS: The patient initially presented to our Emergency Room with confused and agitated behavior. Family had diagnosed him on their own without any sort of laboratory assistance with a urinary tract infection and insisted that this was causing the behavioral change. The patient apparently was not reporting any symptoms of urinary tract infection, but he also had an advanced dementia. He was admitted to the medical floor actually with congestive heart failure as a primary diagnosis. His mental status changes there, continued and he was aggressive with the staff there. Family did not want him on psychoactive medicines or transfer to the behavioral unit, but once became clear that this was not associated with a urinary tract infection, they agreed to have him transferred to the behavioral unit. On the behavioral unit, he did not have any aggressive behaviors. He was severely impaired cognitively and was not disruptive in any significant way even with personal care. The patient has a history of a closed head injury when he fell approximately 12 feet. He has had a recent MRI of the brain that is consistent with that injury as well as chronic changes that one would expect in an elderly individual with dementia. The patient apparently stopped driving 11 years ago because of difficulty getting lost and he has continued to deteriorate over the past 11 years. He failed a swallowing evaluation as he could not properly process liquids and it was the recommendation of speech pathology that he be n.p.o. He had not been eating or drinking adequately and the n.p.o. status started the day before discharge. The patient's sodium was escalating and the family was considering their options, which included hospice care. The consulting physician responsible for nonpsychiatric issues ordered IV today, but the family wanted him to go home. Their plan was to take him to another hospital where they have had better results are at least they are more satisfied with the care. They also want the surgeon there to place a feeding tube in him and his condition has been so severe in the past that he has had a feeding tube. They were able to gradually advance his diet, so he could eat some, but now he is not eating adequately and is unable to process the food and water adequately. Again, symptom of an end-stage dementia. HOSPITAL COURSE: The patient was discharged. The family wanted him transferred to the other Hospital's Emergency Department and wanted him to go by ambulance and we assist with this. He was subsequently discharged and follow up will be arranged by the family. 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 AXIS II: None. AXIS III: Hypertension, chronic obstructive pulmonary disease, congestive heart failure, and urinary tract infection prior to this admission. AXIS IV: Moderate. AXIS V: Global assessment of functioning is 30. DISCHARGE SUMMARY REPORT [id number] ERIKA MEJIA PLAN: The patient's prognosis is poor for the reasons described above. The circumstances described above indicate what was done and why. TRANSINT:[id number] Voice Confirmation ID: [id number] DOCUMENT ID: [id number] TEO KENDRICK MD at 1253 CC: [id number] DICTATION DATE: 10/17/191652 ROUTE RELIEF DRIVER: 10/18/19 0415 DIS IN 10/17/19 [facility] [address] [place] [address]
--- NOTE | 2019-10-18 12:53 | PN ---
PATIENT:ERIAK MEJIA MEDICAL RECORD: [id number] LOCATION:[facility] ADMISSION DATE: 10/11/19 PROGRESS NOTE DATE OF SERVICE: 10/17/2019 SUBJECTIVE: The patient's case was discussed with staff. He has no new complaint. OBJECTIVE: The patient is only oriented to person. He ate nothing yesterday. Speech saw him yesterday and feels that he needs to be n.p.o. because of aspiration risk. He continues not to eat adequately. I spoke about his condition with his yesterday who is very distressed. She wants him to be given medication and nutrition through an IV, and if that is not possible he would like for him to have a PEG tube. An IV was ordered for him, but before it could be arranged she requested that he be discharged. She wants to take him to the [facility] Emergency Room because a surgeon at that hospital is who so he wants to put the PEG tube in for him. ASSESSMENT: Dementia. PLAN: This is a very difficult situation. The family is obviously stresses and distressed. It is my opinion that he has an advanced dementia and that there is little that can be done for him. During his stay here, he has not been psychotic, disruptive or agitated even when personal care was provided. He has also not been eating or drinking adequately and has laboratory values that demonstrate this. He certainly could be maintained in this vegetative state through feeding him with a PEG tube, but I am confident that is not going to change his underlying cognition. Although this is a stressful time for the family, the longitudinal history also indicates that this is not something new as the described to me. He had his brain injury in 2007. He was somewhat functional after that, but began declining, and in 2008 he was no longer allowed to drive because he was getting lost and confused. That is over 11 years ago and he has continued to decline since then. Obviously, follow up will be arranged by the family who are planning to just take him to another hospital from here. TRANSINT:[id number] Voice Confirmation ID: [id number] DOCUMENT ID: [id number] TEO KENDRICK MD at 1253 CC: [id number] DICTATION DATE: 10/17/19 1626 HARDWARE SALES ASSISTANT: 10/17/19 1645 DIS IN 10/17/19 [facility] [address] [place] [address]
== END 2019-10-17 16:15 | DRG 57 ==
LOC: D.PSYCH 14:28
PROVIDERS: Family Medicine; Internal Medicine Nephrology; ADMIT Psychiatry & Neurology Psychiatry; ATTEND Psychiatry & Neurology Psychiatry
DX: G30.9 Alzheimer's disease, unspecified (principal); F02.81 Dementia in other diseases classified elsewhere, unspecified severity, with behavioral disturbance; N39.0 Urinary tract infection, site not specified; N17.9 Acute kidney failure, unspecified; E87.0 Hyperosmolality and hypernatremia; R44.3 Hallucinations, unspecified; I10 Essential (primary) hypertension; J44.9 Chronic obstructive pulmonary disease, unspecified; N40.0 Benign prostatic hyperplasia without lower urinary tract symptoms; I50.9 Heart failure, unspecified; M19.90 Unspecified osteoarthritis, unspecified site; E78.5 Hyperlipidemia, unspecified; N18.9 Chronic kidney disease, unspecified

== ENCOUNTER 2020-08-04 15:02 | Inpatient (IN) | payer MEDICARE, BC ==
[~2020-08-04 15:02] MED LIST changes: +ASPIRIN EC81 M1 PO; +DONEPEZIL HCL5 MG PO; +FOLIC ACID1 MG PO
[2020-08-04] MEDS ORDERED: NORVASC10 MG PEG (16:22)
[2020-08-04] MEDS ORDERED: ASPIRIN325 MG PEG (16:22)
[2020-08-04] MEDS ORDERED: PROMOLAXIN100 MG PEG (16:23)
[2020-08-04] MEDS ORDERED: BUPROPION HCL100 MG PEG (16:23)
[2020-08-04] MEDS ORDERED: GABAPENTIN300 MG PEG (16:25)
[2020-08-04] MEDS ORDERED: LASIX40 MG PEG (16:25)
[2020-08-04] MEDS ORDERED: ERGOCALCIF50000 UNIT PEG (16:25)
[2020-08-04] MEDS ORDERED: METOPROLOL TART25 MG PEG (16:27)
[2020-08-04] MEDS ORDERED: SYNTHROID25 MCG PEG (16:27)
[2020-08-04] MEDS ORDERED: LIPITOR20 MG PEG (16:31)
[2020-08-04] MEDS ORDERED: FLOMAX0.4 MG PEG (16:32)
[2020-08-04] MEDS ORDERED: VALPROATE SODIUM PEG (16:38)
[2020-08-04] MEDS ORDERED: POTASSIUM CHLORIDE PEG (16:41)
--- NOTE | 2020-08-04 17:00 | NUR ---
NEW ADMIT TO DR KENDRICK ON [facility] FROM [facility] FOR AGGRESSION. PATIENT WAS HITTING AND GRABBING STAFF AT [facility]. PATIENT WAS GIVEN 1 MG OF ATIVAN AT 1335 AND WAS INEFFECTIVE. PATIENT WAS TRANSPORTED TO [facility] VIA EMS AND WAS PUT IN RESTRAINTS IN AMBULANCE FOR SAFETY DUE TO PATIENT BEING AGGRESSIVE. UPON ARRIVAL TO [facility], PATIENT WAS AGGRESSIVE WITH STAFF AND EMS. ORDER FOR GEODON 20 MG IM Q4HP RECEIVED FROM DR KENDRICK. GEODON IM GIVEN. PATIENT COVID SWAB AND SWAB SENT TO LAB. PATIENT TO [facility] FOR ADMISSION ASSESSMEENT. REFUSES TO COOPERATE. UNABLE TO GET ADMISSION WEIGHT DUE TO PATIENT BEING COMBATIVE. CONSENTS TO CONSENTS TO TREAT RECEIVED FROM , NED MEJIA. FULL CODE STATUS RECEIVED FROM NED MEJIA.
[2020-08-04 20:00] VITALS: BP 182/66
--- NOTE | 2020-08-04 20:49 | NUR ---
RECEIVED IN BEDROOM. RESTING IN BED WITH EYES CLOSED. LETHARGIC. CALM AND COOPERATIVE WITH CARE. NO SIGNS OF AGGRESSION. REDIRECT AND REORIENT NEEDED. CONTINUES TO REST QUIETLY IN BED WITH EYES CLOSED. CONTINUE PLAN OF CARE.
--- NOTE | 2020-08-05 05:58 | NUR ---
Patient lethargic. Continues to be unable to respond to verbal commands or to respond verbally.
--- NOTE | 2020-08-05 10:48 | NUR ---
Received patient in bed with eyes open. Patient very combative with staff at this time. Staff unable to complete assessment at this time. Patient grabs and hits at staff. Patient continues to pull out Peg tube at this time. Mittens applied to patient's bilateral hands For Peg tube placement safety. Patient hard to redirect per staff. No medications ordered at this time. Redirect and reorient as needed. pt very combative with staff during mitten placement. Adeel Last APRN present. Staff discussing medications and feeding for orders at this time. Staff asked pt if he would let allow feedings at this time. PT. yelled at staff NO. Staff asked patient if he WAS hungry. Patient responded no get out of here. Fall precautions in place for safety. Will continue plan of care. Fall precautions in place for safety. We will continue plan of care.
[2020-08-05 13:51] LABS: BASOPHILS 0.4 % (0-2); EOSINOPHILS 0.9 % (0-7); HEMATOCRIT 40.2 % (42.0-54.0); HEMOGLOBIN 12.7 g/dL (13.5-17.5); IMMATURE GRANULOCYTES 0.6 % (0-5); LYMPHOCYTES 9.4 % (15-50); MCH 29.7 pg (26.0-34.0); MCHC 31.6 g/dL (31.0-37.0); MCV 93.9 fL (80.0-100.0); MEAN PLATELET VOLUME 11.1 fL (7.4-10.4); MONOCYTES 6.2 % (2-11); NEUTROPHIL ABS# 7.05 10x3/uL (1.78-5.38); NEUTROPHILS 82.5 % (40-80); RBC 4.28 10x6/uL (4.20-6.10); RDW 14.2 % (11.5-14.5); WBC 8.5 10x3/uL (4.8-10.8)
[2020-08-05 13:54] LABS: PLATELET COUNT 235 10x3/uL (130-400)
[2020-08-05 14:28] LABS: ALBUMIN 2.8 g/dL (3.4-5.0); ALKALINE PHOSPHATASE 159 U/L (30-120); ALT (SGPT) 19 U/L (10-68); BILIRUBIN - TOTAL 0.38 mg/dL (0.2-1.3); CALC OSMOLALITY 287 mosm/kg (275-300); CALCIUM 8.6 mg/dL (8.5-10.1); CARBON DIOXIDE 28.8 mmol/L (21.0-32.0); CHLORIDE - SERUM 107 mmol/L (98-107); CHOL - HDL RATIO 6.2 ratio (2.3-4.9); CHOLESTEROL, TOTAL 192 mg/dL (0-200); CREATININE - SERUM 1.3 mg/dL (0.6-1.3); GLUCOSE 104 mg/dL (74-106); HDL CHOLESTEROL 31 mg/dL (32-96); LDL CHOLESTEROL 141 mg/dL (0-100); LDL-HDL RATIO 4.5 ratio (1.5-3.5); POTASSIUM - SERUM 4.3 mmol/L (3.5-5.1); PROTEIN - SERUM 6.1 g/dL (6.4-8.2); SODIUM 143 mmol/L (136-145); THYROID STIMULATING HORMONE 3.34 uIU/mL (0.36-3.74); TRIGLYCERIDE 102 mg/dL (30-200); UREA NITROGEN 22 mg/dL (7-18); eGFR NON AFRICAN AMERICAN 56 mL/min (90-120)
[2020-08-05 14:29] VITALS: Wt 82.8 kg
[2020-08-05 14:45] LABS: VALPROIC ACID (DEPAKOTE) < 3.0 ug/mL (50.0-100.0)
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
[2020-08-06 08:13] LABS: RAPID PLASMA REAGIN Non Reactive (Non Reactive)
--- NOTE | 2020-08-06 09:10 | NUR ---
Lab called pt is covid negative at this time.
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
--- NOTE | 2020-08-06 10:30 | NUR ---
PRN effective at this time.
[2020-08-06 16:11] VITALS: BP 180/80
--- NOTE | 2020-08-06 16:13 | PN ---
PATIENT:ERIKA MEJIA JR MEDICAL RECORD: [id number] LOCATION:[facility] ADMISSION DATE: 08/04/20 PROGRESS NOTE DATE OF SERVICE: 08/05/2020 SUBJECTIVE: The patient's case was discussed with staff. He has no new complaint. OBJECTIVE: The patient is wandering and disorganized. He has very limited insight about his situation. ASSESSMENT: Dementia. PLAN: Current medicines have been reviewed. I have not started him on anything scheduled at this point and will continue to observe him for combative behavior. I do think it is reasonable to treat him very cautiously and I am not optimistic he is going to keep the PEG tube in. TRANSINT:[id number] Voice Confirmation ID: [id number] DOCUMENT ID: [id number] TEO KENDRICK MD at 1613 CC: [id number] DICTATION DATE: 08/05/20 1658 WAISTLINE JOINER OVERLOCK: 08/05/20 2354 ADM IN [place] [place] [address]
--- NOTE | 2020-08-06 17:34 | NUR ---
Patient rec'd this am lying in bed with eyes closed. He would not respond to orientation when nurse attempted to assess. He does open his eyes this afternoon when nurse did 1500 tube feeding. When nurse went into room, patient ask nurse what she was doing and nurse explained then he said no and raised his arm toward the nurse and the nurse informed him that behavior was not acceptable. He then allowed nurse to give medicine and scheduled tube feeding without further incident. He is on PUI and is waiting pending lab results. His , after password cleared, has called twice and inquired about his current condition. One to one care in room.
--- NOTE | 2020-08-06 18:13 | NUR ---
PT DID ALLOW STAFF TO TAKE VITALS AND PERFORM ASSESSMENT. PT WAS COOPERATIVE AT THAT TIME.
[2020-08-06 20:00] VITALS: BP 153/76
--- NOTE | 2020-08-07 02:30 | NUR ---
B) Patient is alert and oriented to person, place, and situation, refusing care at time, I) Administered scheduled medications and peg tube feeding, assisted with positioning and comfort, R) Medication compliant, aggressive with staff at times, P) Continue plan of care.
--- NOTE | 2020-08-07 08:37 | NUR ---
lab called with COVID results. negative at this time.
--- NOTE | 2020-08-07 10:12 | NUR ---
Nutrition Follow Up: Interview: Talked with RN this morning. She stated patient has been tolerating his TF with no residuals. Patient was able to bolus 4 cans of Osmolite 1.5 yesterday and refused 1 can. Patient has not been experiencing any nausea or vomiting. His last BM was yesterday and was of a loose consitency. Diet: Osmolite 1.5 x 5 cans per day with 30 cc/hr water flush before and after each bolus feed via PEG. Hold Bolus feeds 1 hr before and 1 hr after Synthoid. TF will provide: 1775 kcal, 74.5 g protein, and 1205 cc free water. Additional water received with water flushes from meds. RD to follow up on 08/10
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
--- NOTE | 2020-08-07 11:30 | NUR ---
PRN NOT EFFECTIVE AT THIS TIME.
--- NOTE | 2020-08-07 11:57 | PN ---
PATIENT:ERIKA MEJIA JR MEDICAL RECORD: [id number] LOCATION:[facility] ADMISSION DATE: 08/04/20 PROGRESS NOTE DATE OF SERVICE: 08/06/2020 SUBJECTIVE: The patient's case was discussed with staff. He has no new complaint. OBJECTIVE: The patient was agitated today and required p.r.n. medication. He has very limited insight about his situation. ASSESSMENT: Dementia. PLAN: I am going to increase the patient's Geodon to 20 mg twice daily. He will be monitored for clinical changes associated with its use. His long-term prognosis is guarded. TRANSINT:[id number] Voice Confirmation ID: [id number] DOCUMENT ID: [id number] TEO KENDRICK MD at 1157 CC: [id number] DICTATION DATE: 08/06/20 172 PROGRAM DIRECTOR SCOUTING: 08/06/20 1846 ADM IN [facility] [address] [place] [address]
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
--- NOTE | 2020-08-07 14:20 | NUR ---
PT CALLED TO GET AN UPDATE ON PT AT THIS TIME. PASSCODE GIVEN. GAVE AN UPDATE ON HOW HE WAS DOING. COMBATIVE WITH STAFF. UNABLE TO REDIRECT.SHE WAS NOT GOOD WITH NEWS.NURSE STATED MEDICATIONS CHANGES WERE NEEDED STILL.
--- NOTE | 2020-08-07 15:51 | NUR ---
Rec'd 2 phone calls from family members today with passcode verified 1st. His daughter and his both requesting information.
--- NOTE | 2020-08-07 19:08 | NUR ---
AFTER PT SPOKE WITH NED. PT BECAME UPSET, THREW PHONE AT STAFF MEMBERS AND UNABLE TO REDIRECT PTS BEHAVIOR. PT WAS VERY UPSET AND NOT SPEAKING WITH STAFF.
[2020-08-07 20:00] VITALS: BP 158/62
--- NOTE | 2020-08-07 20:35 | NUR ---
RECEIVED PATIENT IN HALLWAY, HE IS CONFUSED, HE BECOMES VERY EASILY AGITATED WHEN HE IS BEING ASSESSED. HE WANTS TO BE "LEFT ALONE". MEDS GIVEN PER PEG TUBE. PEG TUBE IS PATIENT AND FLUSHES WITHOUT DIFFICULTY. WILL FOLLOW POC
--- NOTE | 2020-08-08 15:12 | NUR ---
PT SITTING IN CHAIR. PT CONTS TO NOT ACKNOWLEDGE STAFF WHEN SPOKEN TO. NURSE DID A PUPIL CHECK AND PT RESPONDED. PT DID SPEAK TO NURSE STATING HE WAS OKAY WHEN ASKED. PT AGGRESSIVE BEHAVIOR NOTED. CAN MAKE NEEDS KNOWN BUT DOES NOT. WITHDRAWN FROM STAFF AND PEERS. CAN BE UNCOOPERATIVE WITH CARE. PT NPO. G-TUBE IN PLACE AND PATENT. CONFUSION NOTED. ALERT TO SELF ONLY. PT HAS ALL STAFFTO ADMINISTER MEDS AND OSMOLITE 1.5 YASMANI FEEDINGS PER ORDER. TOTAL ASSIST. CONT TO CHANGE SMALL DRESSINGS TO PT Roberth GUY WHEN PT ALLOWS. CHAIR AND BED ALARM IN PLACE AND ACTIVE. WILL CONT PLAN OF CARE.
--- NOTE | 2020-08-08 19:15 | NUR ---
pt Zeinab called to ask how he was doing. Passcode given. nurse stated pt did well all day even with ignoring staff. when staff took pt to bed he became combative with staff. redirection successful. she stated that was okay but she could rest better knowing he was okay and doing better."
--- NOTE | 2020-08-08 23:09 | NUR ---
B)RECEIVED PATIENT SITTING IN THE RECLINER IN HIS ROOM. CONFUSED AND DISORIENTED. WILL TRY TO HIT AT YOU AND YELL WHEN HE IS UNABLE TO REACH YOU. WITHDRAWN AND DOES NOT SOCIALIZE WITH PEERS NOR STAFF. I)ADMINISTER MEDS AND MONITOR COMPLIANCE. REORIENT NEEDED. R)MEDICATION ADMINISTERED THROUGH HIS PEG TUBE. POOR REORIENTATION. PASSIVE AND WILL JUST CLOSE HIS EYES APPEARING HE WANTS TO BE LEFT ALONE. P)CONTINUE POC AND PROVIDE SAFE ENVIRONMENT.
[2020-08-09 00:22] LABS: BILIRUBIN NEGATIVE (NEGATIVE); KETONE NEGATIVE (NEGATIVE); NITRITE NEGATIVE (NEGATIVE); UROBILINOGEN NORMAL mg/dL (< 2)
--- NOTE | 2020-08-09 11:12 | NUR ---
REC'D PT IN HALLWAY IN RECLINING CHAIR. AWAKE AND ALERT TO PERSON ONLY. ASSESSMENT COMPLETED. PRESCRIBED MEDS PROVIDED PER PEG. NO RESIDUAL NOTED AT THIS TIME. PT TOLERATED FEEDINGS WELL. PT IS CALM AND COOPERATIVE AT THIS TIME. PEG TUBE IN PLACE AND PATENT. PEG TUBE FLUSHES EASILY WITH 30ML BEFORE AND AFTER FEEDINGS. NO BEHAVIORS NOTED AT THIS TIME. REDIRECT AND REORIENT NEEDED. FALL PRECAUTIONS IN PLACE. WILL CPOC.
[2020-08-09 11:25] LABS: BASOPHILS 0.4 % (0-2); EOSINOPHILS 1.3 % (0-7); HEMATOCRIT 37.6 % (42.0-54.0); HEMOGLOBIN 11.7 g/dL (13.5-17.5); IMMATURE GRANULOCYTES 0.4 % (0-5); LYMPHOCYTE ABS# 0.51 10x3/uL (1.32-3.57); LYMPHOCYTES 6.5 % (15-50); MCH 29.3 pg (26.0-34.0); MCHC 31.1 g/dL (31.0-37.0); MEAN PLATELET VOLUME 11.8 fL (7.4-10.4); MONOCYTES 6.8 % (2-11); NEUTROPHIL ABS# 6.65 10x3/uL (1.78-5.38); NEUTROPHILS 84.6 % (40-80); PLATELET COUNT 255 10x3/uL (130-400); RDW 14.5 % (11.5-14.5); WBC 7.9 10x3/uL (4.8-10.8)
[2020-08-09 11:38] LABS: ALBUMIN 2.5 g/dL (3.4-5.0); ANION GAP 7.8 mmol/L (8-16); BILIRUBIN - TOTAL 0.29 mg/dL (0.2-1.3); CALCIUM 8.5 mg/dL (8.5-10.1); CARBON DIOXIDE 29.2 mmol/L (21.0-32.0); CREATININE - SERUM 1.4 mg/dL (0.6-1.3); PROTEIN - SERUM 6.2 g/dL (6.4-8.2)
[2020-08-09 12:10] VITALS: BP 132/64
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
[2020-08-09 21:11] VITALS: BP 153/68
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
[2020-08-10 10:34] VITALS: BP 144/84
--- NOTE | 2020-08-10 12:35 | NUR ---
Nutrition Follow-up Diet order: NPO TF order: Osmolite 1.5 x 5 cans/day. 1 can given @ 0600, 0900, 1200, 1500, 1800 + 30mL H2O flush before and after each feeding. Nutrition supplements: Miller BID via PEG tube (added to TF regimen by PAN HELPER on 08/10/20) Tolerating TF per MD notes. Last BM: 08/10/20 x 2 Wt: 190.2# (08/05/20) Meds reviewed. Labs noted (08/09/20): Glu 164(H), alb 2.5(L) Recommendations: -Continue Osmolite 1.5 x 5 cans/day. --Provides: 1775kcal, and 75gms protein -Continue Miller per PAN HELPER recommendations. -RD will follow-up 08/14/20. Skin: no PU noted in nursing skin assessment
--- NOTE | 2020-08-10 17:35 | NUR ---
RECEIVED IN PATIENT ROOM. CALM AND COOPERATIVE WITH CARE, ASSESSMENT, AND TUBE FEEDINGS TODAY. PLEASANTLY VERBALIZES NEEDSS. SAYING PLEASE AND THANK YOU WHEN ASKING FOR SOMETHING. COMPLIANT WITH DRESSING CHANGES. NO AGGRESSIVE BEHAVIOR NOTED TODAY. REDIRECT AND REORIENT NEEDED. TALKING ON THE PHONE WITH HIS AT THIS TIME. CONTINUE PLAN OF CARE.
[2020-08-10 20:49] VITALS: BP 155/64
--- NOTE | 2020-08-10 20:50 | NUR ---
RECEIVED IN HALLWAY. SITTING QUIETLY IN A RECLINING CHAIR. ASSISTED TO BED. CALM AND COOPERATIVE WITH CARE AND ASSESSMENT. NO SIGNS OF AGGRESSION. ALERT AND ORIENTED X3. REDIERCT AND REORIENTED. RESTING QUIETLY IN BED WITH EYES CLOSED AT THIS TIME. CONTINUE PLAN OF CARE.
[2020-08-11 08:00] VITALS: BP 127/68
--- NOTE | 2020-08-11 08:00 | NUR ---
REC'D PT IN BED WITH EYES CLOSED. RESPOND TO VERBAL STIMULI. CALM AND COOPERATIVE WITH ASSESSMENT. NO AGGRESSION NOTED AT THIS TIME. NO OTHER BEHAVIORS NOTED. PT TOLERATED FEEDINGS AND MEDICATIONS WELL PER MEDICATION NURSE. REDIRECT AND REORIENT NEEDED. FALL PRECAUTIONS IN PLACE. WILL CPOC.
[2020-08-11 12:34] LABS: HEMATOCRIT 38.3 % (42.0-54.0); HEMOGLOBIN 11.9 g/dL (13.5-17.5); LYMPHOCYTE ABS# 0.44 10x3/uL (1.32-3.57); MCH 29.2 pg (26.0-34.0); MCHC 31.1 g/dL (31.0-37.0); MCV 93.9 fL (80.0-100.0); MEAN PLATELET VOLUME 12.2 fL (7.4-10.4); NEUTROPHIL ABS# 25.08 10x3/uL (1.78-5.38); PLATELET COUNT 224 10x3/uL (130-400); RBC 4.08 10x6/uL (4.20-6.10); RDW 15.2 % (11.5-14.5); WBC 27.1 10x3/uL (4.8-10.8)
[2020-08-11 12:42] LABS: ALBUMIN 2.8 g/dL (3.4-5.0); ANION GAP 11.6 mmol/L (8-16); BILIRUBIN - TOTAL 0.5 mg/dL (0.2-1.3); CALCIUM 8.4 mg/dL (8.5-10.1); CARBON DIOXIDE 27.2 mmol/L (21.0-32.0); CREATININE - SERUM 1.7 mg/dL (0.6-1.3); POTASSIUM - SERUM 4.8 mmol/L (3.5-5.1); PROTEIN - SERUM 6.4 g/dL (6.4-8.2)
[2020-08-11 14:49] LABS: EOSINOPHILS 1 % (0-7); LYMPHOCYTES 2 % (15-50); MONOCYTES 3 % (2-11); NEUTROPHILS 91 % (40-80); PLATELET ESTIMATE NORMAL
--- NOTE | 2020-08-11 15:41 | PN ---
PATIENT:ERIKA MEJIA JR MEDICAL RECORD: [id number] LOCATION:[facility] ADMISSION DATE: 08/04/20 PROGRESS NOTE DATE OF SERVICE: 08/10/2020 SUBJECTIVE: The patient's case was discussed with staff. He has no new complaint. OBJECTIVE: The patient is cooperative with PEG tube feedings and medications. He is not fully oriented, but he is Polite, pleasant, cooperative, and shows no evidence of acute dangerousness. In my opinion, he is appropriate to be transferred back to the [place] [facility]. TRANSINT:[id number] Voice Confirmation ID: [id number] DOCUMENT ID: [id number] TEO KENDRICK MD at 1541 CC: [id number] DICTATION DATE: 08/10/20 1644 PRESIDENT [employer] CEO [employer]: 08/11/20 0027 ADM IN [facility] [address] [place] [address]
[2020-08-11 20:29] VITALS: BP 143/64
--- NOTE | 2020-08-11 20:34 | NUR ---
RECEIVED IN DAYROOM. SITTING IN A RECLINER WITH PEERS AT HIS SIDE. CONFUSED. MILD AGITATION WITH CARE. REDIRECTED EASILY. NO SIGNS OF AGGRESSION. REDIRECT AND REORIENT NEEDED. SITTING CALMLY WITH PEERS AT THIS TIME. CONTINUE PLAN OF CARE.
[2020-08-12 10:34] VITALS: BP 121/61
--- NOTE | 2020-08-12 14:53 | PN ---
PATIENT:ERIKA MEJIA JR MEDICAL RECORD: [id number] LOCATION:[facility] ADMISSION DATE: 08/04/20 PROGRESS NOTE DATE OF SERVICE: 08/11/2020 SUBJECTIVE: The patient's case was discussed with staff. He has no new complaint. OBJECTIVE: The patient denies intent to harm himself or others. He is tolerating his medicines well. He has been calm and cooperative. ASSESSMENT: Dementia. PLAN: The patient's behaviors have improved and if this level of improvement continues, he can be discharged soon. TRANSINT:[id number] Voice Confirmation ID: [id number] DOCUMENT ID: [id number] TEO KENDRICK MD at 1453 CC: [id number] DICTATION DATE: 08/11/20 1745 STRESS ENGINEER: 08/12/20 0219 ADM IN [facility] [address] [place] [address]
--- NOTE | 2020-08-12 16:26 | NUR ---
Rec'd patient this am up in a reclining w/c. He has a Peg tube for meds and tube feedings. He is on Osmolite 1.5 isabel bolus 5x/day with 30cc of water before and after flushes. Peg site cleaned and dressed last night per nurse. site/placement checked before administration on fluids. He is up in the dayroom sitting near the director of home economics for group activities/ therapy but he does not participate. He will sit and sleep and would prefer to be in his own area.He can become easily aggressive with staff over simple request as in ADLs, tube feedings, wound care. He will life up his arm and swing out, He is confused and irritable and resistant to care. Zeinab, his has called, password verified, twice today this am at 0950 and at 1550 for inquiries about his health
[2020-08-12 20:00] VITALS: BP 142/65
--- NOTE | 2020-08-12 23:59 | NUR ---
B)RECEIVED PATEINT SITTING IN THE RECLINER. WOULD NOT MAKE EYE CONTACT. NON VERBAL. WOULD NOT ACKNOWLEDGE THAT NURSE WAS TALKING TO HIM. DOES NOT INTERACT WITH PEERS. WITHDRAWN. I)ADMINISTER MEDS AND MONITOR COMPLIANCE. INVOLVE IN GROUP CONVERSATIONS AND ACTIVITIES. R)MED COMPLIANT VIA PEG. REMAINS WITHDRAWN. LABILE IE WILL NOT ACKNOWLEDGE THOSE AROUND HIM OR IS UNCOOPERATIVE AND AGGRESSIVE WITH CARE. P)CONTINUE POC AND PROVIDE SAFE ENVIRONMENT.
--- NOTE | 2020-08-13 10:02 | NUR ---
pt became combative with staff during bed bath. pt attempted to kick staff when washing pt leg. unable to redirect behavior. pt did not say anything to staff.
--- NOTE | 2020-08-13 10:08 | NUR ---
2x staff members was giving staff a bed bath. pt became aggressive when staff was washing pt legs. pt did not make any statements to staff. pt became agitated with staff. unable to redirect pt at this time.
--- NOTE | 2020-08-13 11:35 | NUR ---
Patient rec'd this am up in a reclining wheelchair. He is A/O time 2 to person/situation. He is very difficult to assess orientation level as he will sit and close his eyes and not respond to your questions but is really just sitting there with his eyes closed. He has a peg-tube that he receives bolus feedings of Osmolite with 30ml flushes before and after bolus feeds. He tolerates well. Site placement checks performed before tube feedings. He has been present in group therapy/activities but has not participated. He has not demonstrated any aggressive or agaitated behavior at this time of shift. He can be very calm and pleasant but can easily become very aggressive and fighting/lashing out at staff.
[2020-08-13 12:57] LABS: BASOPHILS 0.2 % (0-2); EOSINOPHILS 2.3 % (0-7); HEMATOCRIT 36.7 % (42.0-54.0); HEMOGLOBIN 11.4 g/dL (13.5-17.5); IMMATURE GRANULOCYTES 0.3 % (0-5); LYMPHOCYTE ABS# 0.39 10x3/uL (1.32-3.57); LYMPHOCYTES 3.1 % (15-50); MCH 29.2 pg (26.0-34.0); MCHC 31.1 g/dL (31.0-37.0); MCV 93.9 fL (80.0-100.0); MEAN PLATELET VOLUME 12.4 fL (7.4-10.4); MONOCYTES 5.1 % (2-11); NEUTROPHIL ABS# 11.31 10x3/uL (1.78-5.38); PLATELET COUNT 202 10x3/uL (130-400); RBC 3.91 10x6/uL (4.20-6.10); RDW 15.3 % (11.5-14.5); WBC 12.7 10x3/uL (4.8-10.8)
[2020-08-13 13:23] LABS: ANION GAP 12.9 mmol/L (8-16); CALCIUM 8.5 mg/dL (8.5-10.1); CARBON DIOXIDE 26.6 mmol/L (21.0-32.0); CREATININE - SERUM 1.4 mg/dL (0.6-1.3); POTASSIUM - SERUM 4.5 mmol/L (3.5-5.1)
--- NOTE | 2020-08-13 14:15 | NUR ---
pt called stating she would be visiting this shift. nurse gave directions and times as well. she verbalizied understanding.
--- NOTE | 2020-08-13 15:18 | NUR ---
pt called stating she was at the door waiting for visitation time. nurse stated as soon as visitation began someone would come and retrieve her.
--- NOTE | 2020-08-13 16:04 | NUR ---
pt became upset with spouse at visitation at this time. staff member removed pt at this time. staff spoke with and consuled her at this time. she stated that had never happen to her before and this was not him at all. staff verbalizied understanding of situation. she did not understand why he was doing that and this is not him.
--- NOTE | 2020-08-13 16:11 | PN ---
PATIENT:ERIKA MEJIA JR MEDICAL RECORD: [id number] LOCATION:[facility] ADMISSION DATE: 08/04/20 PROGRESS NOTE DATE OF SERVICE: 08/12/2020 SUBJECTIVE: The patient's case was discussed with staff. He has no new complaint. OBJECTIVE: The patient is cooperative and partially oriented. He apparently has a pneumonia. He is, however, afebrile and his vital signs are stable. He has been started on antibiotic and I think he can reasonably be discharged soon once it is identified that the pneumonia is not worsening. The patient did have a very elevated white cell count and obviously that needs to come down prior to discharge. ASSESSMENT: 1. Dementia. 2. Probable pneumonia. PLAN: Current medicines have been reviewed. He is being treated with antibiotics. TRANSINT:[id number] Voice Confirmation ID: [id number] DOCUMENT ID: [id number] TEO KENDRICK MD at 1611 CC: [id number] DICTATION DATE: 08/12/20 1621 NEWS VIDEO EDITOR: 08/13/20 0006 ADM IN [facility] [address] [place] [address]
[2020-08-13 20:00] VITALS: BP 137/66
--- NOTE | 2020-08-13 20:39 | NUR ---
B) Patient is alert and oriented to self, combative with care, misinterpets, difficult to redirect, I) Administered scheduled medications as ordered, monitored for safety R) Medication compliant, resting quiety now, P) Continue plan of care.
--- NOTE | 2020-08-14 09:07 | NUR ---
NURSE SPOKE WITH Adeel DUNCAN APRN DUE TO INCREASED BUN 50 AND CREAT 1.4. WILL OBTAIN NEW ORDERS UPON ARRIVAL.
[2020-08-14 11:17] LABS: ANION GAP 11.8 mmol/L (8-16); CALCIUM 8.6 mg/dL (8.5-10.1); CARBON DIOXIDE 27.5 mmol/L (21.0-32.0); CREATININE - SERUM 1.2 mg/dL (0.6-1.3); POTASSIUM - SERUM 4.3 mmol/L (3.5-5.1)
[2020-08-14 11:30] LABS: BASOPHILS 0.1 % (0-2); EOSINOPHILS 5.2 % (0-7); HEMOGLOBIN 11.3 g/dL (13.5-17.5); IMMATURE GRANULOCYTES 0.4 % (0-5); LYMPHOCYTE ABS# 0.46 10x3/uL (1.32-3.57); LYMPHOCYTES 5.8 % (15-50); MCH 28.9 pg (26.0-34.0); MCHC 31.4 g/dL (31.0-37.0); MCV 92.1 fL (80.0-100.0); MEAN PLATELET VOLUME 12.5 fL (7.4-10.4); MONOCYTES 5.5 % (2-11); PLATELET COUNT 227 10x3/uL (130-400); RBC 3.91 10x6/uL (4.20-6.10)
--- NOTE | 2020-08-14 12:48 | NUR ---
Rec'd patient this am lying in bed. He is A/O times one to his name as he rarely will open his eyes when the nurse says his name. He does not respond to this nurse, only will open his eyes. He has accepted his meds and all G-tube feedings so far this shift. He is on Osmolite 1.5 with feedings of 1 container 5 times/day. This nurse verifies placement of tube by osculatation of air. G-tube site assessed and dressing change today. I noted a very small amount of colored drainage on dressing but none noted on ostomy site. No active s/sx of infection assessed. The area of tissue around the stoma site was cleaned gentley with wound hand fur cleaner, pat dried, and a split non-adhering dressing was taped in place. He did not attend any group therapy/activities today but was one to one with his nurse. He has displayed no signs of aggression or agitation. He makes no eye contact. non-verbal with staff but cooperative.
--- NOTE | 2020-08-14 13:54 | NUR ---
NUTRITION FOLLOW UP: COMMENTS: Patient tolerating TF with no residuals recorded. TF: Osmolite 1.5 Bolus @ 0600, 0900, 1200, 1500, and 1800 WATER FLUSHES: 30 cc before and after each carton SUPPLEMENT: Miller BID TF PROVIDES: 1775 kcal and 75 g protein per day WEIGHT: 190 lbs on 08/05 BM: x 2 on 08/14 MEDS: Probiotic, Lipitor, Synthroid, Geodon LABS: BUN-40(H), Glucose-136, 187, 160, 164 RECOMMENDATIONS: -Continue Osmolite 1.5 via PEG 5 times per day -Continue Water Flushes @ 30 cc before and after each feeding -Continue Miller BID -Elevate HOB -Okay to hold TF if residuals become > [address] to follow up within 7 days
--- NOTE | 2020-08-14 14:01 | PN ---
PATIENT:ERIKA MEJIA JR MEDICAL RECORD: [id number] LOCATION:[facility] ADMISSION DATE: 08/04/20 PROGRESS NOTE DATE OF SERVICE: 08/13/2020 SUBJECTIVE: The patient's case was discussed with staff. He has no new complaint. OBJECTIVE: The patient is in good behavioral control; however, he was aggressive with personal care today. His aggression seems to be limited only to when staff are trying to clean him or bathe him. Given the fact that he has an advanced dementia. I think that is just an unfortunate part of his condition that is going to have to be accepted by his caregivers. ASSESSMENT: Dementia. PLAN: Current medicines have been reviewed and will be maintained. I anticipate he can be transitioned out of the hospital soon. However, at this point, we are still waiting on official approval from [facility] and the office of long-term care. TRANSINT:[id number] Voice Confirmation ID: [id number] DOCUMENT ID: [id number] TEO KENDRICK MD at 1401 CC: [id number] DICTATION DATE: 08/13/20 1625 ROUTER OPERATOR PIN: 08/13/20 [id number] ADM IN [facility] [address] [place] [id number]
--- NOTE | 2020-08-14 17:14 | NUR ---
When nurse went into patients room , his head, face, upper torso, and in his groin skin area felt very hot. His face was flushed. I ask him if he felt hot, cold, or sick and he nodded his head as if he was saying no. We immed. took his axcillary temp and it read 97.0. Patient had no other signs of infection. Heavy covers removed and a light sheet placed and covered patient.
[2020-08-14 20:00] VITALS: BP 121/70
--- NOTE | 2020-08-14 21:11 | NUR ---
PT IS RECEIVED IN HIS ROOM IN BED WITH EYES OPEN. NO VERBAL RESPONSE TO NURSE OR OTHER STAFF. PROVIDED PM MEDICATIONS VIA PEG TUBE. FLUSHED WITH 100 ML. FLAT AFFECT. REPOSITIONED TO BACK. MONITOR FOR SAFETY.
--- NOTE | 2020-08-15 10:43 | PN ---
PATIENT:ERIKA MEJIA JR MEDICAL RECORD: [id number] LOCATION:[facility] ADMISSION DATE: 08/04/20 PROGRESS NOTE DATE OF SERVICE: 08/14/2020 SUBJECTIVE: The patient's case was discussed with staff. He has no new complaint. OBJECTIVE: The patient is cooperative. He seems to be feeling significantly better. His white count is now in the normal range. His BUN has also improved with additional free water being provided to him through the PEG tube. ASSESSMENT: Dementia. PLAN: Current medicines have been reviewed. I anticipate he can be transitioned out of the hospital and back to the long-term soon. TRANSINT:[id number] Voice Confirmation ID: [id number] DOCUMENT ID: [id number] TEO KENDRICK MD at 1043 CC: [id number] DICTATION DATE: 08/14/20 1544 INNERSOLE MAKER: 08/14/20 2301 ADM IN [facility] [address] [place] [address]
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
--- NOTE | 2020-08-15 12:50 | NUR ---
GOOD RESPONSE TO GEODON.RESTING QUIETLY,AWAKE BUT QUITE.ALLOWED THIS NURSE TO GIVE FEEDING AND MED.
--- NOTE | 2020-08-15 18:50 | NUR ---
1800 TUBE FEEDING REFUSED.WILL NOT DISCUSS WITH THIS NURSE ABOUT WHY HE IS REFUSING MEDS AND TUBE FEEDINGS.
--- NOTE | 2020-08-15 19:11 | NUR ---
PT IS ALERT AND ORIENTED TO SELF. INITAILLY REFUSED TUBE FEEDINGS BUT RELATES THAT HE IS HUNGRY. CONSENTS TO TUBE FEEDING AND MEDICATON ADMINISTRATION VIA PEG PER ORDERS. FLAT AFFECT. MINIMAL EYE CONTACT.
[2020-08-15 22:17] VITALS: BP 120/61
--- NOTE | 2020-08-15 23:19 | NUR ---
PT IS MORE ALERT AND IS ORIENTED TO SELF AND PLACE. CONVERSING WITH STAFF DURING BED CHANGE. APPOLOGIZES TO STAFF ABOUT EARLIER BEHAVIORS. CALM, COOPERATIVE AND APPRECIATIVE WITH STAFF. ATTEMPTS TO ASSIST MORE WITH BED MOBILITY. MONITOR FOR SAFETY.
[2020-08-16 08:00] VITALS: BP 130/62
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
--- NOTE | 2020-08-16 18:17 | NUR ---
PATIENT NON-VERBAL THIS SHIFT. CALLED AND STATED THAT PATIENT WAS AMBULATORY AT HOME. HOWEVER, PATIENT IS A THREE-PERSON ASSIST WITH TRANSFERS AND HAS BEEN SINCE ARRIVAL TO UNIT. MEDS ADMIN PER ORDERS WITH MED COMPLIANCE NOTED. COMPLIANT WITH FEEDING. NO AGGRESSION THIS SHIFT. CONT POC.
--- NOTE | 2020-08-16 18:52 | NUR ---
Dressing change to G-tube site. Area cleaned with wound laboratory equipment cleaner, pat dried, and a slit gauze dressing applied and taped in place. Noted a small brown drainage on the gauze and stoma area slighly reddened. Patient denied pain.
--- NOTE | 2020-08-16 20:15 | NUR ---
RECEIVED IN BEDROOM. RESTING QUIETLY WITH EYES OPEN. NO VERBAL RESPONSES TO QUESTIONS. CALM AND COOPERATIVE WITH CARE AND ASSESSMENT. NO SIGNS OF AGGRESSION. REDIRECT AND REORIENT NEEDED. CONTINUES TO REST QUIETLY IN BED. CONTINUE PLAN OF CARE.
[2020-08-16 21:15] VITALS: BP 147/62
[2020-08-17 08:27] VITALS: BP 142/71
--- NOTE | 2020-08-17 13:29 | PN ---
PATIENT:ERIKA MEJIA JR MEDICAL RECORD: [id number] LOCATION:[facility] ADMISSION DATE: 08/04/20 PROGRESS NOTE DATE OF SERVICE: 08/16/2020 SUBJECTIVE: The patient's case was discussed with staff. He has no new complaints. OBJECTIVE: The patient is oriented to person and somewhat to situation. He is uncooperative intermittently with both PEG tube feedings and medications. He cannot give an explanation about this. ASSESSMENT: Dementia. PLAN: The patient was started on a low dose of Klonopin yesterday. It is my suspicion that his inability to cooperate is related somewhat to anxiety that he cannot intellectually process. He will be monitored for clinical changes. With the use of the Klonopin, I am particularly concerned about affecting his ambulation and we will monitor the situation to arrive at the best balance of desirable effects. TRANSINT:[id number] Voice Confirmation ID: [id number] DOCUMENT ID: [id number] TEO KENDRICK MD at 1329 CC: [id number] DICTATION DATE: 08/16/20 1124 THERMAL CUTTER HAND: 08/16/20 1557 ADM IN [place] [facility] [id number] [place] [address]
--- NOTE | 2020-08-17 17:30 | NUR ---
RECEIVED IN PATIENT ROOM. RESTING IN BED WITH EYES OPEN. CALM AND COOPERATIVE WITH CARE AND ASSESSMENT. NO AGGRESSIVE BEHAVIOR. COMPLIANT WITH MEDICATIONS AND TUBE FEEDINGS. REDIRECT AND REORIENT NEEDED. RESTING IN RECLINER AT THIS TIME. CONTINUE PLAN OF CARE.
[2020-08-17 20:00] VITALS: BP 142/64
--- NOTE | 2020-08-18 01:40 | NUR ---
RECEIVED IN BEDROOM. RESTING IN BED WITH EYES OPEN. NO RESPONSE TO VERBAL COMMUNICATIONS. WILL ASSIST IN TURNING AT TIMES. POSITION TO LEFT SIDE. WEDGE IN USE. CALM AND COOPERATIVE WITH CARE AND ASSESSMENT. NO SIGNS OF AGGRESSION. REDIRECT AND REORIENT NEEDED. RESTING IN BED WITH EYES CLOSED AT THIS TIME, POSITIONED TO RIGHT SIDE. CONTINUE PLQAN OF CARE.
--- NOTE | 2020-08-18 15:30 | PN ---
PATIENT:ERIKA MEJIA JR MEDICAL RECORD: [id number] LOCATION:[facility] ADMISSION DATE: 08/04/20 PROGRESS NOTE DATE OF SERVICE: 08/17/2020 SUBJECTIVE: The patient's case was discussed with staff. He has no new complaint. OBJECTIVE: The patient is not aggressive. He is not responding to questions at this point, but I do not think that that is anything other than a volitional attitude that he has taken. ASSESSMENT: Dementia. PLAN: I am going to hold the patient's Klonopin for today. He will be monitored for clinical changes. I anticipate he can be transitioned out of the hospital soon. TRANSINT:[id number] Voice Confirmation ID: [id number] DOCUMENT ID: [id number] TEO KENDRICK MD at 1530 CC: [id number] DICTATION DATE: 08/17/20 1624 SENIOR FORMULATION SCIENTIST: 08/18/[address] [facility] [address] [place] [address]
--- NOTE | 2020-08-18 17:45 | NUR ---
RECEIVED IN PATIENT ROOM. RESTING IN BED WITH EYES OPEN. CALM AND COOPERATIVE WITH CARE AND ASSESSMENT. DOES NOT RESPOND VERBALLY TO CONVERSATION. NO AGGRESSIVE BEHAVIOR. REDIRECT AND REORIENT NEEDED. EATING DINNER AT THIS TIME. CONTINUE PLAN OF CARE.
[2020-08-18 20:00] VITALS: BP 129/52
--- NOTE | 2020-08-18 21:26 | NUR ---
RECEIVED IN BEDROOM. RESTING IN BED WITH EYES OPEN. CONTINUES TO BED NON VERBAL BUT WILL ASSIST IN TURNING IN BED AND FOLLOWS SIMPLE INSTUCTIONS. NO SIGNS OF AGGRESSION THIS EVENING. REDIRECT AND REORIENT NEEDED. RESTING IN BED WITH EYES CLOSED. CONTINUE PLAN OF CARE.
--- NOTE | 2020-08-19 16:06 | PN ---
PATIENT:ERIKA MEJIA JR MEDICAL RECORD: [id number] LOCATION:[facility] ADMISSION DATE: 08/04/20 PROGRESS NOTE DATE OF SERVICE: 08/18/2020 SUBJECTIVE: The patient's case was discussed with staff. He has no new complaint. OBJECTIVE: The patient is not talking. He will not say why he is not talking, he is obviously just not talking. On the other hand, he is taking his medication. He is allowing the tube feedings and medications through the PEG tube and has not been aggressive. I am not sure what to make of this and obviously he will not tell me. I think for the time being, I am just going to observe him and see if I can make some sort of breakthrough or maybe one of the staff who spent a lot of time with him during the day can do so, but in the meantime, I am just going to maintain current medications. He is not presenting any kind of problem with regard to care, but he is not talking. He is awake. He is nodding his head. He is following basic commands, but he will not talk and I do not think there is a stroke or anything like that that might be causing this, but I am at a loss as to how to explain it from a behavioral standpoint. TRANSINT:[id number] Voice Confirmation ID: [id number] DOCUMENT ID: [id number] TEO KENDRICK MD at 1606 CC: [id number] DICTATION DATE: 08/18/201721 WARD ASSISTANT: 08/19/20 0034 ADM IN [facility] [address] [place] [address]
--- NOTE | 2020-08-19 16:52 | NUR ---
Nutrition Re-Assessment Tolerating TF per MD notes. TF order: Osmolite 1.5 x 5 cans per day + Miller BID This provides: 1775kcal and 75gms of protein Last BM: 08/17/20 Wt: 196# (08/16/20); Admit Wt: 190.2# (08/05/20) Meds noted: pepcid, probiotics Labs noted: Glu 136(H) Estimated nutrition needs and nutrition diagnosis remain unchanged from initial nutrition assessment at his time. Patient is progressing towards meeting nutrition goals at this time. Recommendations/Interventions: -Continue current TF regimen. -RD will follow-up 08/24/20.
--- NOTE | 2020-08-19 17:40 | NUR ---
RECEIVED IN PATIENT ROOM. RESTING IN BED WITH EYES OPEN. CALM AND COOPERATIVE WITH CARE AND ASSESSMENT. NO AGGRESSIVE BEHAVIOR. REDIRECT AND REORIENT NEEDED. EATING DINNER AT THIS TIME. CONTINUE PLAN OF CARE.
--- NOTE | 2020-08-19 18:33 | NUR ---
RECEIVED THIS AM RESTING QUIETLY IN BED.LIFTED TO RECLINER PER TWO.IS COMPLIANT WITH STAFF BUT DOES NOT RESPOND TO QUESTIONS.HAS FLAT AFFECT.REQUIRES TOTAL CARE.FEEDINGS AND MEDS VIA PEG TUBE.WILL CONTINUE WITH CURRENT PLAN OF CARE,MONITOR FOR CHANGES AND SAFETY.
[2020-08-19 20:00] VITALS: BP 140/56
--- NOTE | 2020-08-19 21:47 | NUR ---
PT IS RECEIVED IN BED WITH EYES OPEN. NO EYE CONTACT MAINTINED WHILE GIVING MEDICATIONS. NON VERBAL WITH STAFF. NO AGGRESSION NOTED. FLAT AFFECT. MONITOR FOR SAFETY.
[2020-08-20 09:42] VITALS: BP 136/51
--- NOTE | 2020-08-20 13:09 | PN ---
PATIENT:ERIKA MEJIA JR MEDICAL RECORD: [id number] LOCATION:[facility] ADMISSION DATE: 08/04/20 PROGRESS NOTE DATE OF SERVICE: 08/19/2020 SUBJECTIVE: The patient's case was discussed with staff. He has no new complaint. OBJECTIVE: The patient continues to be nonverbal for the bizarre reasons that are unknown to me. The patient is otherwise cooperative and not aggressive. ASSESSMENT: Dementia. PLAN: The longterm says they cannot take him if he is on an antipsychotic medication. I think he needs this medication, but this is a problem, I have encountered before. I will stop the medication and try something different, but if his behaviors return he is going to have to find a different facility since this particular longterm is one of only a few that have this requirement of their residence. Perhaps the change to a something different may encourage him to start talking again. TRANSINT:[id number] Voice Confirmation ID: [id number] DOCUMENT ID: [id number] TEO KENDRICK MD at 1309 CC: [id number] DICTATION DATE: 08/19/201831 MANAGER MEDICAL AFFAIRS: 08/20/20 0026 ADM IN [facility] [address] [place] [id number]
--- NOTE | 2020-08-20 13:38 | NUR ---
PERLA Gross APRN IN REGARDS TO VENOUS DOPPLER RESULTS. SHE INSTRUCTED TO CALL DR. BAUMANN AT THIS TIME.
--- NOTE | 2020-08-20 13:39 | NUR ---
PAGED DR. BAUMANN IN REGARDS TO VENOUS DOPPLER RESULTS. NEW ORDER: ELIQUIS 5 MG BID. NO OTHER ORDERS AT THIS TIME.
--- NOTE | 2020-08-20 14:10 | NUR ---
son in law called and wanted to know visiting hours for pt. belacotatiana asked for and given. he stated he was going to come and get him going. he has been acting weird so im going to come see what i can do." nurse educated on visiting hours. he thanked nurse.
--- NOTE | 2020-08-20 14:23 | NUR ---
nurse attempted to call Zeinab Pearson in regards to venous doppler results. no answer at this time. will attempt call later.
--- NOTE | 2020-08-20 16:52 | NUR ---
NURSE AND ANODE CREW SUPERVISOR SHANT Kaur SPOKE WITH SON IN LAW NURIS AT THIS TIME. HE STATED HE WAS THE LAST PERSON WHO CAN SEE IF HE WILL RESPOND TO HIM OR HELP WITH THE PROBLEM. HE SAID IF HE CANT DO ANYTHING THEN THERE HAS TO BE A PLAN B. EDUCATION AND ASSURANCE GIVEN. HE VISITED WITH PT AT THIS TIME. PT DID NOT RESPOND WELL TO VISIT.
--- NOTE | 2020-08-20 17:15 | NUR ---
NURIS CHACON STATED TO CALL HIM FOR ALL REASONS INSTEAD OF NED MEJIA. HE IS THE GUARDIAN. CELLPHONE NUMBER: [phone]. HE STATED HE WAS HAVING A FAMILY MEETING ABOUT THE NEXT STEP. HE BECAME AGITATED WHEN VISITOR WAS SPEAKING WITH HIM. FAMILY MEMBER STATED HE WAS GOING TO HAVE A FAMILY VISIT AND DECIDE WHAT TO DO. HE STATED FAMILY MEMBERS WOULD NOT VISIT OR CALL BEFORE COMING TO SEE PT. STAFF VERBALIZIED UNDERSTANDING. HE STATED HE WOULD CALL AND SEE HOW THE PT DID AFTER HE LEAVES. HE STATED THAT HE WAS NOT SURE WHAT TO DO AT THIS TIME. HE WOULD FIGURE IT OUT. PT MEDICATIONS WERE CHANGED SO HE WOULD GO BACK TO FACILITY. HE VERBALIZIED UNDERSTANDING.
--- NOTE | 2020-08-20 18:22 | NUR ---
Rec'd patient this am lying in bed with HOB up. He is A/O to self. He has not spoken to this nurse but will open eyes when nurse talks to him and this afternoon he smiled at this nurse when spoken to . He has a G-tube and receives osmolite 1.5 237ml 5 times/day. The tube was verified by ausculatation. Promod offered for wound healing. He has not demonstrated any aggressive or aggitated with staff or other patients today. He is turned and checked for dryness every 2 hours. He has a reddened area to his buttocks and butt balm applied. He has a round scabbed area to his right hand and his G-Tube site was cleaned with wound bobbin cleaner , a split dressing was applied, and taped in place. There was a scant amount of reddish brown drainage to old dressing. He had a visitor today but was non-verbal to them also. He sat present while activities/therapy was in progress but did not participate.
[2020-08-20 20:00] VITALS: BP 140/53
--- NOTE | 2020-08-20 21:54 | NUR ---
PT IS RECEIVED IN BED WITH EYES OPEN. NON VERBAL WITH STAFF. ATTEMPTS TO ASSIST WITH SOME ADLS BUT UNABLE TO ASSIST WITH TRANSFER. COMPLIANT WITH MEDICATIONS. REPOSITION FOR COMFORT. MONITOR FOR SAFETY.
[2020-08-21 09:34] VITALS: BP 156/83
--- NOTE | 2020-08-21 18:55 | NUR ---
Rec'd patient this am lying in bed with HOB up. He is A/O times 1 to person. He will open his eyes when this nurse calls his name but that is the only communication. He is non-verbal. He has displayed no aggression or aggitation with staff. He is withdrawn. He attended group therapy/ activities but slept thru. He has a Peg-tube that the dressing was changed today. Stoma area cleaned with wound cleanser, pat dried, applied a split dressing to stoma site and taped in place. A scant amount of light brown drainage to g-tube dressing. Bandage to hand dry and intact. G-tube feedings with precribed feeding by gravity. Left leg swelling has decreased and no warmth felt to leg and ankle. Patient did not show any signs of pain when leg was moved.
--- NOTE | 2020-08-21 19:35 | NUR ---
nurse spoke with bishop pham. passcode given. she wanted to know how he was doing. nurse gave an update. she wanted to know if she should visit this weekend. nurse stated she could call and see if his behaviors and come visit. she voiced understanding.
[2020-08-21 20:00] VITALS: BP 143/58
--- NOTE | 2020-08-21 22:10 | NUR ---
RECEIVED PATIENT IN HIS ROOM, RESTING QUIETLY, HE IS VERY FLAT AND WOULD NOT REALLY ACKNOWLEDGE MY PRESENCE. LEFT LEG SWOLLEN COMPARED TO RIGHT LEG. PATIENT APPEARS TO NOT BE IN PAIN AT THIS TIME HENCE NO GRIMACING OR ANY OTHER OUTWARDLY SUGGESTIONS OF PAIN. WILL FOLLOW POC
--- NOTE | 2020-08-22 07:15 | NUR ---
LATE ENTRY. ASSESSED PATIENT LAST PM. SPOKE WITH NURSE APPROPRIATELY. ORIENTED TO PERSON AND PLACE. DENIED PAIN TO LLE RELATING IT HAS NEVER HURT HIM. PLEASANT AND COOPERAIVE.
[2020-08-22 08:00] VITALS: BP 144/72
--- NOTE | 2020-08-22 11:55 | NUR ---
LIAN JAEGERN HERE AT THIS TIME. NURSE REPORTED INCREASED PEDAL EDEMA IN LOWER LEFT LEG AND THIGH. WARM TO TOUCH AND FLUSHED. TEMP 2X ORAL AND 1 AX WAS WITHIN NORMAL LIMITS OF 98.6. REMOVED TOP BLANKET. PT TOLERATED PERICARE AND TURNING WITH REPOSITION VERY WELL.
--- NOTE | 2020-08-22 14:04 | NUR ---
NEW ORDERS AT THIS TIME: ELIQUIS 10 MG BID, LASIX 40 MG DAILY, POTASSIUM CHLORIDE POWDER 20 MEQ DAILY. WILL ADMINISTER MEDICATIONS PER ORDER.
--- NOTE | 2020-08-22 14:09 | NUR ---
NURSE SPOKE WITH NURIS CHACON AT THIS TIME. PASSCODE GIVEN. HE WANTED TO KNOW HOW THE PT WAS DOING. NURSE GAVE AN UPDATE ON HOW HE WAS DOING. HE HAS NOT SPOKE TO THE DAYSHIFT STAFF BUT DID SPEAK TO ONE OF THE STOPER NURSES BRIEFLY. HE HAS NOT BEEN COMBATIVE WITH STAFF AT THIS TIME. HE STATED THEY WOULD NOT VISITING TODAY BUT TOMMORROW. HE WOULD CALL FOR NED BEFORE THEY COME TO VISIT TO SEE HOW HE IS DOING. HE STATED HE WOULD CALL AT 1400 ON MONDAY TO SEE HOW HE IS DOING BEFORE VISITING. NURSE STATED SHE WOULD RELAY IT TO THE NEXT SHIFT. HE VERBALIZIED UNDERSTANDING.
--- NOTE | 2020-08-22 14:56 | NUR ---
MADE PT UPDRAFTS TO PRN
--- NOTE | 2020-08-22 15:59 | NUR ---
PT 12 P.M FEEDING AND WATER HELD DUE TO EXCESSIVE EDEMA NOTED. 4+ PITTING EDEMA NOTED. NEW ORDER FOR LASIX OBTAINTED AT THIS TIME.
--- NOTE | 2020-08-22 18:28 | NUR ---
pt in bed at this time. pt does not speak to staff when spoken to. pt is confused. conts on intermitt PEG tube feedings. head of bed raised as well. no agression noted. pt is not combative. pt edema reduced after dose of lasix. cont to reposition q 2 hr and prn. pericare q 2 hr and prn. heels floated continously to avoid heel breakdown. bed alarm in place and active. will cont plan of care.
--- NOTE | 2020-08-22 19:31 | NUR ---
bandages changed to hand this shift.
[2020-08-22 20:00] VITALS: BP 135/65
--- NOTE | 2020-08-22 22:49 | NUR ---
RECEIVED PATIENT IN HIS ROOM, VERY FLAT AFFECT, NOT TALKING, NO EYE CONTACT. PATIENT IS NOW ON LASIX PER PEG TUBE AND IS EFFECTIVE. WILL FOLLOW POC
[2020-08-23 06:24] LABS: BASOPHILS 0.7 % (0-2); HEMATOCRIT 36.4 % (42.0-54.0); HEMOGLOBIN 11.4 g/dL (13.5-17.5); IMMATURE GRANULOCYTES 0.6 % (0-5); LYMPHOCYTE ABS# 0.79 10x3/uL (1.32-3.57); LYMPHOCYTES 11.3 % (15-50); MCH 28.6 pg (26.0-34.0); MCHC 31.3 g/dL (31.0-37.0); MCV 91.5 fL (80.0-100.0); MEAN PLATELET VOLUME 11.7 fL (7.4-10.4); NEUTROPHILS 78.4 % (40-80); PLATELET COUNT 267 10x3/uL (130-400); RBC 3.98 10x6/uL (4.20-6.10); RDW 15.2 % (11.5-14.5)
[2020-08-23 06:39] LABS: ALBUMIN 2.7 g/dL (3.4-5.0); ANION GAP 9.6 mmol/L (8-16); BILIRUBIN - TOTAL 0.4 mg/dL (0.2-1.3); CALCIUM 8.7 mg/dL (8.5-10.1); CARBON DIOXIDE 29.4 mmol/L (21.0-32.0); CREATININE - SERUM 1.2 mg/dL (0.6-1.3); PROTEIN - SERUM 6.4 g/dL (6.4-8.2)
[2020-08-23 09:43] VITALS: BP 130/70
--- NOTE | 2020-08-23 17:57 | NUR ---
RECEIVED IN PATIENT ROOM. RESTING IN BED WITH EYES OPEN. CALM AND COOPERATIVE WITH CARE AND ASSESSMENT. MAKES EYE CONTACT BUT DOES NOT VERBALLY RESPOND TO CONVERSATION. NO AGGRESSIVE BEHAVIOR. REDIRECT AND REORIENT NEEDED. EATING DINNER AT THIS TIME. CONTINUE PLAN OF CARE.
[2020-08-23 21:06] VITALS: BP 118/56
--- NOTE | 2020-08-23 21:29 | NUR ---
RECEIVED IN DAYROOM. SITTING CALMLY IN A RECLINING CHAIR. CALM AND COOPERATIVE WITH CARE AND ASSESMENT. NOT VERBALIZING NEEDS BUT WILL FOLLOW SIMPLE COMMANDS. NO SIGNS OF AGGRESSION. REDIRECT AND REORIENT NEEDED. CONTINUES TO SIT CALMLY IN RECLINER. CONTINUE PLAN OF CARE.
[2020-08-24 08:00] VITALS: BP 143/70
--- NOTE | 2020-08-24 09:00 | NUR ---
Received patient in bed with eyes open. Awake and alert to person only. Patient does have verbal communication with staff at times. Assessment completed at this time. No aggression noted. Redirect and reorient as needed. Patient turned and repositioned every 2 hours and as needed. No complaints of pain or distress noted at this time. Fall precautions in place for safety. Will cpoc.
--- NOTE | 2020-08-24 11:24 | NUR ---
NUTRITION FOLLOW UP: COMMENTS: Patient continues bolus feeds through PEG tube. No residuals recorded. Patient tolerating TF per MD. TUBE FEED ORDER: Osmolite 1.5 (5 cartons per day) provides 1775 kcal and 75g protein SUPPLEMENT: Miller BID (provides 132 kcal/day and 5g protein) TF+MILLER BID PROVIDES: 1907 kcal and 80 g protein per day BM: x 1 on 08/23 WEIGHT: 08/16-196 lbs (no new weight) SKIN: No PU or Chronic Wounds SIG MEDS: KCl, Lasix, Pepcid, Probiotic, Lipitor, Synthroid, Geodon SIG LABS: 08/23- BUN-22(H), Glucose-137, Albumin-2.7(L) RECOMMENDATIONS: -Continue Osmolite 1.5, 5x per day via PEG tube -Continue Miller BID RD to follow up within 7 days
--- NOTE | 2020-08-24 13:46 | PN ---
PATIENT:ERIKA MEJIA JR MEDICAL RECORD: [id number] LOCATION:[facility] ADMISSION DATE: 08/04/20 PROGRESS NOTE DATE OF SERVICE: 08/20/2020 SUBJECTIVE: The patient's case was discussed with staff. He is eating well and sleeping well and not representing any kind of a management problem. So far, the change from Geodon to Ativan has been without any event. Unfortunately, the patient's leg was noted to be swollen today and apparently he has developed a DVT, which Dr. Cristobal is going to address. If this patient needs to be transferred to the medical floor, there are no psychiatric contraindications to that. TRANSINT:[id number] Voice Confirmation ID: [id number] DOCUMENT ID: [id number] TEO KENDRICK MD at 1346 CC: [id number] DICTATION DATE: 08/20/20 1608 SHADE BANDER: 08/20/20 2133 ADM IN [facility] [address] [place] [address]
--- NOTE | 2020-08-24 20:42 | NUR ---
RECEIVED IN BEDROOM. RESTING IN BED WITH EYES OPEN. SOCAILIZING WITH MHT. IN GOOD SPIRITS. ALERT AND ORIENTED X4. CALM AND COOPERATIVE WITH CARE AND ASSESSMENT. NO SIGNS OF AGGRESSION. REDIRECT AND REORIENT NEEDED. RESTING QUIETLY IN BED WITH EYES CLOSED AT THIS TIME. CONTINUE PLAN OF CARE.
[2020-08-24 21:36] VITALS: BP 130/61
--- NOTE | 2020-08-25 06:40 | NUR ---
PT NON VERBAL WITH REPOSITIONING. UNABLE TO MAINTAIN EYE CONTACT AT BED CHANGE THIS AM.
[2020-08-25 08:43] VITALS: BP 127/63
--- NOTE | 2020-08-25 16:04 | PN ---
PATIENT:ERIKA MEJIA JR MEDICAL RECORD: [id number] LOCATION:[facility] ADMISSION DATE: 08/04/20 PROGRESS NOTE DATE OF SERVICE: 08/24/2020 SUBJECTIVE: The patient's case was discussed with staff. He has no new complaint. OBJECTIVE: The patient is in good behavioral control. He has limited insight about his situation. ASSESSMENT: Dementia. PLAN: The patient is receiving tube feedings and is cooperative. He is sleeping well and has not been aggressive. TRANSINT:[id number] Voice Confirmation ID: [id number] DOCUMENT ID: [id number] TEO KENDRICK MD at 1604 CC: [id number] DICTATION DATE: 08/24/201738 GEAR SHAPER: 08/24/20 2249 ADM IN [place] [id number] [place] [address]
--- NOTE | 2020-08-25 18:35 | NUR ---
RECEIVED IN BED THIS AM.DOES NOT RESPOND VERBALY TO QUESTIONS.PEG TUBE INTACT AND PATENT.HAS ALLOWED FEEDING TODAY WITHOUT ANY AGGRESSION OBSERVED.REQUIRES TOTAL CARE.TURN Q 2 HOURS.WILL CONTINUE WITH CURRENT PLAN OF CARE,MONITOR FOR CHANGES AND SAFETY.
--- NOTE | 2020-08-25 21:51 | NUR ---
RECEIVED IN BEDROOM. RESTING QUIETLY WITH EYES CLOSED. WILL OPEN EYES BUT WILL NOT RESPOND VERBALLY. DOES ASSIST IN TURNING WHEN DIRECTED. CALM AND COOPERATIVE WITH CARE AND ASSESSMENT. NO SIGNS OF AGGRESSION. REDIRECT AND REORIENT NEEDED. RESTING QUIETLY IN BED WITH EYES CLOSED. CONTINUE PLAN OF CARE.
[2020-08-25 22:26] VITALS: BP 135/62
[2020-08-26 08:00] VITALS: BP 135/65
--- NOTE | 2020-08-26 09:42 | NUR ---
transition social worker spoke to patient's son-in-law, Saira, about discharge planning needs and possible hospice referral. transition social worker explained different types of levels of care and went over finances with Saira. Saira stated a referral to a penitentiary would be more appropriate for long-term care. Saira also agreed to have [place] [facility] assess patient and admit if appropriate to care. [facility] and rehab was patient's family's first choice and penitentiary placement. [place] [facility] was family's first choice and hospice referral. transition social worker discussed disease progression and the benefits of having a hospice team in a penitentiary setting. No other needs were voiced at this time. referral will be made.
--- NOTE | 2020-08-26 12:00 | NUR ---
Patient was accepted by [facility] and rehab and [facility]. Family called and stated they will visit and sign paperwork on Monday. [facility] does not discharge after Monday, so patient will discharge early Monday if everything goes smoothly on the Monday visit. Saira voiced no other needs at this time and was appreciative of services provided.
--- NOTE | 2020-08-26 12:50 | NUR ---
[place] clam picker David Green came into unit and stated he had the referral for possible hospice admission when patient goes to LTC. He attempted to visit with patient but he was non-verbal and did not open his eyes.
--- NOTE | 2020-08-26 13:50 | NUR ---
Patient rec'd this am in bed with HOB up. He has tolerated feedings, meds, and supplements without sighs of pain or aggitation. He is A/O times 1 to person as he will open his eyes when spoken to but he remains non-verbal to this nurse. He had a visitor today from [facility]. Dressing to stoma G-tube site cleaned with wound sleeping room cleaner, pat dried, and recovered with a split 4x4 and taped in place. area aroung stoma slighty red with a little brown drainge but reddness minimal and patient showed no signs of pain during cleaning. He showed no signs of aggitation or aggression this am with any care. He has been cooperative and calm. His buttocks was reddened this am. He has been checked for dryness, cleaned, and turned q. 2 hours this am and a wedge placed to his back to help keep him in line. He still will attempt to lay back on the wedge and will move his arms and feet/legs around in bed. There is neg edema or signs of pain to his left leg. He can be directed and re-directed at this date/time.
--- NOTE | 2020-08-26 14:58 | NUR ---
NUTRITION REASSESSMENT: COMMENTS: Patient continues tolerating Osmolite 1.5 and nutrition supplement. DIET: 5 cartons of Osmolite 1.5 SUPPLEMENT: Miller BID Miller+TF provides 1907 kcal and 80 g protein Patient meeting 86% kcal needs and 82% protein needs WEIGHT: 196 lbs on 08/16 BM: x 1 on 08/26 SIG MEDS: Lasix, KCl, pepcid, Lipitor, Synthroid, Zinc Stearate SIG LABS: No new labs since 08/23 ESTIMATED NEEDS (BASED ON PATIENTS'S ACTUAL BODY WEIGHT): 4199-3782 kcal/day (25-30 kcal/kg) 98-115 g protein (1.1-1.3 g/kg) 0018-4486 cc fluid (25-30 cc/kg) NUTRITION DX: Inadequate oral intake related to need for PEG tube as evidenced by NPO status and need for TF to meet >75% estimated needs RECOMMENDATIONS: Continue Osmolite 1.5- 5x per day Continue Miller BID RD to follow up within 7 days
--- NOTE | 2020-08-26 16:02 | PN ---
PATIENT:ERIKA MEJIA JR MEDICAL RECORD: [id number] LOCATION:[facility] ADMISSION DATE: 08/04/20 PROGRESS NOTE DATE OF SERVICE: 08/25/2020 SUBJECTIVE: The patient's case was discussed with staff. He has no new complaint. OBJECTIVE: The patient is blunted and withdrawn, but he does interact some. He is only oriented to person. ASSESSMENT: Dementia. PLAN: The patient is ready for discharge and may be transitioned to long-term care as soon as those arrangements are made. TRANSINT:[id number] Voice Confirmation ID: [id number] DOCUMENT ID: [id number] TEO KENDRICK MD at 1602 CC: [id number] DICTATION DATE: 08/25/20 1637 HORTICULTURE SUPERINTENDENT: 08/25/20 2346 ADM IN [facility] [address] [place] [address]
[2020-08-26 20:00] VITALS: BP 151/58
--- NOTE | 2020-08-26 20:48 | NUR ---
PATIENT LYING IN BED CALMLY, FLAT AFFECT, NO RESP. DISTRESS, PATIENT HAS A PEG TUBE, TOTAL CARE PATIENT. MEDS CRUSHED AND GIVEN THROUGH TUBE. WILL FOLLOW POC
[2020-08-27 08:55] VITALS: BP 133/51
--- NOTE | 2020-08-27 16:09 | PN ---
PATIENT:ERIKA MEJIA JR MEDICAL RECORD: [id number] LOCATION:[facility] ADMISSION DATE: 08/04/20 PROGRESS NOTE DATE OF SERVICE: 08/26/2020 SUBJECTIVE: The patient's case was discussed with staff. He has no new complaint. OBJECTIVE: The patient is in good behavioral control with poor insight about his situation. He has not been disruptive or aggressive. ASSESSMENT: Dementia. PLAN: If this level of improvement continues, he is and has been ready for discharge and hopefully that can occur soon. There are some bureaucratic and logistical issues that are an impediment, but as soon as the administrator social welfare sales planner is able to resolve those, I believe he can be safely transitioned to a lower level of care. TRANSINT:[id number] Voice Confirmation ID: [id number] DOCUMENT ID: [id number] TEO KENDRICK MD at 1609 CC: [id number] DICTATION DATE: 08/26/20 171 INSURANCE SALESPERSON: 08/26/20 2350 ADM IN [place] [id number] [place] [address]
--- NOTE | 2020-08-27 18:49 | NUR ---
PT CALLED TO CHECK ON WAS DOING. PASSWORD GIVEN. NURSE GAVE UPDATE HOW HE WAS DOING. SPEAKING WITH CERTAIN STAFF MEMBERS AT TIMES. NO COMBATIVE BEHAVIOR NOTED. SHE WAS THANKFUL FOR THE MEDICATION.
--- NOTE | 2020-08-27 19:09 | NUR ---
Rec'd patient sitting up in bed. He is A/O times 2 to person and situation but has periods of confusion. He has a peg tube and receives all his nutrition and fluids, and medications. The PHOTO CHECKER AND ASSEMBLER was present today and she loosened the disk that sits at the stoma site. The site bleed a little extra and caused an extra dressing change. He has demonstrated no signs of aggression or aggitation. He has been calm and cooperative today. No behaviors. He is directable and re-directable.
[2020-08-27 20:00] VITALS: BP 139/64
--- NOTE | 2020-08-28 01:51 | NUR ---
B) Patient is alert and oriented to person and being in a hospital, converses at times with some staff, I) Administered scheduled medications as ordered, all medications and food via peg tube, R) Medication compliant, no aggression with care, P) Continue plan of care.
--- NOTE | 2020-08-28 15:48 | NUR ---
Patient rec'd this am lying in bed with HOB elevated. He is A/O times 1 to person.He has a G-tube that is flushed 5 times/day, administration of medications and supplement, and Ismolite. It is checked for placement each time it going to accessed. He has tolerated his nutrition well with difficulty. He has been calm and cooperative today with care and has had no aggression or aggitative behavior. Dressing change to g-tube stoma site..area cleaned with wound latrine cleaner, pat dried, area covered with a pre-split 4-4 gauze and taped in placed. He had a small amount of reddish/brown drainage to old gauze. He tolerated dressing change without s/sx of pain. He has abrased scattered areas on justino. arms. He has very dry skin with lotion applied.
[2020-08-28 20:00] VITALS: BP 125/51
--- NOTE | 2020-08-28 21:58 | NUR ---
PT IS RECEIVED IN HIS ROOM IN BED WITH EYES PARTIALLY OPEN. DOES NOT RESPOND TO VERBAL STIMULATION BUT DOES RESPOND TO PAIN. MAX ASSIST WITH BED MOBILITY HE IS RESISTANT TO ANY CARE. PROVIDED HS MEDICATIONS THROUGH HIS PEG. TOLERATED WELL AND REPOSITIONED TO MAINTAIN SKIN INTEGRITY. MONITOR FOR SAFETY.
--- NOTE | 2020-08-29 18:37 | NUR ---
RECEIVED IN BED THIS AM.HAS BEEN NONVERBAL WITH THIS NURSE TODAY.PEG TUBE CHECKED FOR PROPER PLACEMENT BEFORE FEEDINGS,MEDS.TURNED Q 2 HR.NO AGGRESSION OBSERVED.WILL CONTINUE WITH CURRENT PLAN OF CARE,MONITOR FOR CHANGES AND SAFETY.
[2020-08-29 20:00] VITALS: BP 127/53
--- NOTE | 2020-08-29 21:27 | NUR ---
PT IS ALERT AND ORIENTED TO SELF. PT FLAT AFFECT. SPOKE WITH PT ABOUT FAMILY AND VISITATION. I ASKED IF HE HAD SPOKEN TO FAMILY TODAY AND HE STATED "NO, WHY WOULD THEY WANT TO SPEAK TO ME ANYWAY." ENCOURAGE PT TO USE HIS VOICE MORE OFTEN AND HE IMMEDIATELY SHUT BACK DOWN AND REFUSED TO ENGAGE IN CONVERSTAION. COMPLIANT WITH MEDICATIONS ADMINISTERED THROUGH PEG TUBE. TOLERATED WELL. REPOSITIONED TO MAINTAIN SKIN INTEGRITY.
[2020-08-30 08:22] VITALS: BP 128/62
--- NOTE | 2020-08-30 13:45 | NUR ---
SPOKE TO THIS NURSE TODAY.SAID HE WANTS TO BE CALLED TONY ADORNO AND THEN HE WENT SILENT AND JUST LOOKED STRAIGHT AHEAD BEFORE CLOSING HIS EYES.PEG CHECKED FOR PROPER PLACEMENT BEFORE GIVING MEDS AND FEEDING.REQUIRES TOTAL CARE,TURN Q 2 HR.IS INCONTINENT OF BOWEL AND BLADDER.NO AGGRESSION OBSERVED.WILL CONTINUE WITH CURRENT PLAN OF CARE,MONITOR FOR CHANGES AND SAFETY.
--- NOTE | 2020-08-30 17:47 | NUR ---
Patients spouse calls 1300, pass code verified, and she states to let Silvano (social human services assistants) know that [facility] (LTC facility) will call tomorrow (Monday) that they have accepted them into their facilty and they can admit patient tomorrow (Monday). She said if Silvano had any questions, to have her call Zeinab.
--- NOTE | 2020-08-30 20:12 | NUR ---
RECEIVED IN BEDROOM. RESTING QUIETLY WITH EYES CLOSED. RESPONDS TO VOICE. SOCIAL WITH STAFF. ALERT AND ORIENTED X4. CALM AND COOPERATIVE WITH CARE AND ASSESSMENT. NO SIGNS OF AGGRESSION. REDIRECT AND REORIENT NEEDED. ENCOURAGE TO EXPRESS NEEDS. CONTINUES TO REST CALMLY IN BED. CONTINUE PLAN OF CARE.
[2020-08-30 21:20] VITALS: BP 133/58
--- NOTE | 2020-08-31 01:16 | NUR ---
PT ASKED THIS NURSE IF IT WAS NORMAL TO HEAR VOICES IN YOUR HEAD. RELATED THAT HE HEARS MULTIPLE VOICES AND THIS IS A NEW OCCURANCE. ASKED MHT HER NAME BECAUSE "YONY LEEANN WANTS TO KNOW WHAT YOUR NAME IS, SHE IS HERE WITH US." OBSERVED SEVERAL TIMES TALKING TO SELF.
[2020-08-31 08:00] VITALS: BP 129/65
--- NOTE | 2020-08-31 08:54 | PN ---
PATIENT:ERIKA MEJIA JR MEDICAL RECORD: [id number] LOCATION:[facility] ADMISSION DATE: 08/04/20 PROGRESS NOTE DATE OF SERVICE: 08/27/2020 SUBJECTIVE: The patient's case was discussed with staff. He has no new complaint. OBJECTIVE: The patient is in good behavioral control. He is allowing tube feedings and medications. He is sleeping and he has actually started interacting and talking more. ASSESSMENT: Dementia. PLAN: Hopefully, the patient can be transitioned out of the hospital soon. TRANSINT:[id number] Voice Confirmation ID: [id number] DOCUMENT ID: [id number] TEO KENDRICK MD at 0854 CC: [id number] DICTATION DATE: 08/27/201702 AVIATION TECHNICIAN: 08/27/20 215 ADM IN [place] [id number] [place] [address]
[2020-08-31] MEDS ORDERED: Potassium Cl oral po PEG (13:26)
[2020-08-31] MEDS ORDERED: PEPCID PEG (13:26)
[2020-08-31] MEDS ORDERED: PROSCAR5 MG PEG (13:26)
[2020-08-31] MEDS ORDERED: ZOLOFT50 MG PO (13:26)
[2020-08-31] MEDS ORDERED: ELIQUIS5 MG PEG (13:26)
[2020-08-31 14:19] LABS: SARS-CoV-2 ANTIGEN NEGATIVE- SARS-COV-2 (NEGATIVE)
--- NOTE | 2020-08-31 15:00 | NUR ---
PATIENT CALM AND QUIET THIS SHIFT. TOLERATING FEEDINGS AND MEDS WELL. NO RESIDUAL NOTED. PATIENT NON-VERBAL THIS SHIFT, AWAITING TRANSPORT TO LTC FACILITY. G-TUBE PLACEMENT VERIFIED VIA ASPIRATION AND AUSCULTATION.
--- NOTE | 2020-08-31 18:15 | NUR ---
PT DISCHARGED TO [facility] VIA [facility]. NO S/SX OF DISTRESS NOTED. ALL DISCHARGE PAPERWORK FAXED AND COPY SENT WITH PT AT TIME. REPORT CALLED TO MARY CENTENO AT [facility].
--- NOTE | 2020-09-01 14:19 | PN ---
PATIENT:ERIKA MEJIA JR MEDICAL RECORD: [id number] LOCATION:[facility] ADMISSION DATE: 08/04/20 PROGRESS NOTE DATE OF SERVICE: 08/31/2020 SUBJECTIVE: The patient's case was discussed with staff. He has no new complaint. OBJECTIVE: The patient is in good behavioral control and has no thoughts of harming himself or others. ASSESSMENT: Dementia. PLAN: The patient can be transitioned out of the hospital soon. Long-term prognosis is guarded. TRANSINT:[id number] Voice Confirmation ID: [id number] DOCUMENT ID: [id number] TEO KENDRICK MD at 1419 CC: [id number] DICTATION DATE: 08/31/20 162 SR. VENDOR MANAGEMENT ASSOCIATE: 08/31/20 2303 DIS IN 08/31/20 [facility] [address] [place] [address]
== END 2020-08-31 18:15 | DRG 884 ==
LOC: D.PSYCH 15:02
PROVIDERS: Family Medicine; ADMIT Psychiatry & Neurology Psychiatry; ATTEND Psychiatry & Neurology Psychiatry
DX: F01.51 Vascular dementia, unspecified severity, with behavioral disturbance (principal); J18.9 Pneumonia, unspecified organism; N39.0 Urinary tract infection, site not specified; I82.442 Acute embolism and thrombosis of left tibial vein; Z20.822 Contact with and (suspected) exposure to COVID-19; J44.9 Chronic obstructive pulmonary disease, unspecified; I11.0 Hypertensive heart disease with heart failure; I50.9 Heart failure, unspecified; I25.10 Atherosclerotic heart disease of native coronary artery without angina pectoris; Z86.73 Personal history of transient ischemic attack (TIA), and cerebral infarction without residual deficits; R13.10 Dysphagia, unspecified; E03.9 Hypothyroidism, unspecified; N40.0 Benign prostatic hyperplasia without lower urinary tract symptoms; E78.5 Hyperlipidemia, unspecified; K59.00 Constipation, unspecified; E55.9 Vitamin D deficiency, unspecified